=== PATIENT | female | born 1990 | race Caucasian/White ===

== ENCOUNTER 2020-11-21 07:38 | Outpatient (CLI) | payer OTHER, BC, SELFPAY ==
[2020-11-21 07:57] LABS: Basophils Percent Auto 0.6 % (0.2-1.2); Eosinophils Absolute Auto 0.2 K/mm3 (0-0.3); Eosinophils Percent Auto 3.3 % (0-4.4); Hematocrit 40.9 % (37.0-47.0); Hemoglobin 13.5 g/dL (12.0-15.0); Immature Granulocyte Absolute 0.01 K/mm3 (0.00-0.031); Immature Granulocyte Percent A 0.1 % (0-0.5); Lymphocytes Absolute Auto 2.95 K/mm3 (0.9-3.2); Lymphocytes Percent Auto 42.2 % (18.3-44.2); Mean Corpuscular Hemoglobin 29.8 pg (26-34); Mean Corpuscular Volume 90.3 fl (80-100); Mean Platelet Volume 9.9 fl (7.4-10.4); Monocytes Absolute Auto 0.5 K/mm3 (0.1-0.6); Monocytes Percent Auto 7.3 % (2.6-8.5); Neutrophils Absolute Auto 3.3 K/mm3 (1.3-6.7); Neutrophils Percent Auto 46.5 % (45.5-73.1); Platelet Count Result 394 k/mm3 (150-375); Red Blood Count 4.53 M/mm3 (4.2-5.4); Red Cell Distribution Width 12.9 % (11.5-14.5)
[2020-11-21 08:07] LABS: Alanine Aminotransferase 13 U/L (4-35); Albumin Level 4.1 g/dL (3.5-5.1); Alkaline Phosphatase 60 U/L (38-126); Anion Gap 5 mmol/L (8-16); Aspartate Amino Transferase 26 U/L (14-36); Bilirubin,Total 0.3 mg/dL (0.2-1.3); Blood Urea Nitrogen 11 mg/dL (7-17); Calcium 9.3 mg/dL (8.4-10.2); Carbon Dioxide 28 mmol/L (22-30); Chloride 107 mmol/L (98-107); Cholesterol 196 mg/dL (0-200); Estimated Glomerular Filt Rate 48; Glucose 95 mg/dL (65-105); HDL Direct 73 mg/dL; Potassium 4.9 mmol/L (3.4-5.0); Sodium 140 mmol/L (137-145); Triglycerides 84 mg/dL (<150)
[2020-11-21 08:19] LABS: LDL Cholesterol Direct 98 mg/dL
[2020-11-21 08:47] LABS: Valproic Acid 38.8 ug/mL (50-120)
== END 2020-11-21 07:39 | disposition home or self-care (01) ==
PROVIDERS: PCP Internal Medicine; Visit Provider Clinical Nurse Specialist
DX: E66.01 Morbid (severe) obesity due to excess calories (principal); Z13.228 Encounter for screening for other metabolic disorders; Z79.899 Other long term (current) drug therapy
CPT/HCPCS: 36415; 80053; 80061; 80164; 84450; 85025

== ENCOUNTER 2021-03-02 11:24 | Emergency (ER) | payer OTHER, BC, SELFPAY ==
--- NOTE | ~2021-03-02 | XR_ITS ---
EXAMINATION: XR chest 2V 03/02/2021 12:02 INDICATION: Cough for 4 days. Wheezing. PROCEDURE: 2 view chest COMPARISON: No prior studies for comparison. FINDINGS: The lungs are clear. The cardiomediastinal silhouette is within normal limits. There are no pleural effusions. There is no pneumothorax suspected. IMPRESSION: 1: NO ACUTE CARDIOPULMONARY DISEASE. Reviewed, dictated and finalized at location A.
[2021-03-02 11:28] VITALS: BP 135/98; PULSE 101; RESP 16; TEMP 36.8; O2SAT 100
[2021-03-02 11:33] VITALS: BP 135/98; PULSE 101; RESP 16; TEMP 36.8; O2SAT 100
--- NOTE | 2021-03-02 11:52 | ED.URI ---
HPI - URI/Sore Throat General Chief Complaint: Upper Respiratory Infection Stated Complaint: dizzy/nausea/diarrhea/congestion/cerrato Time Seen by Provider: 03/02/21 11:38 Source: patient and RN notes reviewed Mode of arrival: ambulatory Limitations: no limitations History of Present Illness HPI Narrative: Patient presents today complaining of 3-day history of of ear pain, congestion, body aches, fatigue, nausea, diarrhea, dry cough, headache. Denies fever sore throat. She has been taking TheraFlu, Mucinex, Flonase, using [id number]-[id number] eardrops and Vicks VapoRub without relief. She has not been vaccinated against COVID-19. Smokes 1 pack/day. Related Data Home Medications Medication Instructions Recorded Confirmed citalopram 10 mg tablet 10 mg PO DAILY tablet 08/06/20 03/02/21 dextroamphetamine-amphetamine 10 10 mg PO BID tablet 08/06/20 03/02/21 mg tablet lamotrigine 200 mg tablet 200 mg PO BID 08/06/20 03/02/21 Allergies Allergy/AdvReac Type Severity Reaction Status Date / Time No Known Allergies Allergy Verified 03/02/21 11:28 Review of Systems Review of Systems: Narrative: CONSTITUTIONAL: Denies fever, chills, or sweats.+ Body aches, fatigue EYES: Denies visual changes, redness, or discharge. ENT: + Congestion, ear pain. Denies sore throat CARDIOVASCULAR: Denies chest pain, palpitations, or edema. RESPIRATORY: Denies dyspnea.+ Cough GASTROINTESTINAL: Denies abdominal pain, vomiting. + Nausea, diarrhea GENITOURINARY: Denies dysuria or hematuria. SKIN: Denies rash, itching, or wounds. MUSCULOSKELETAL: Denies back pain, joint pain, or myalgia. NEUROLOGIC: Denies numbness, tingling, or weakness.+ Headache PSYCH: Denies depression or anxiety. [facility] Past Medical History Medical History Anxiety Depression Hx of migraines Kidney stones Pyelonephritis Tachycardia Surgical History Surgical History History of right nephrectomy History of ureter stent Social History Social History (Updated 03/02/21 @ 19:41 by Terra Cid, [facility], ) Smoking packs per day: 1 Smoking cigarettes per day: 20.0 Smoking status: Current every day smoker Tobacco type: cigarettes Alcohol intake: never Comments At time of signature, I have reviewed and agree with nursing past medical, surgical, social and family history unless otherwise noted. Please see nursing chart for further information. There is no relevant family history pertinent to the presenting complaint Exam Narrative: Exam Narrative: GENERAL: Well-appearing, well-nourished, and in no acute distress. HEAD: Normocephalic, atraumatic. EYES: EOMI. No redness or drainage. Conjunctivae normal. ENT: Mucous membranes pink and moist. Nares clear. No rhinorrhea. TMs normal bilaterally. Throat normal. Uvula midline. NECK: Normal AROM. Supple. No lymphadenopathy. CHEST: No respiratory distress. Inspiratory and expiratory wheeze left upper lobe, inspiratory wheeze in the right upper lobe. HEART: Regular rate and rhythm. No murmur appreciated. Normal peripheral pulses. EXTREMITIES: Normal range of motion. No edema. SKIN: Warm, dry, no rash. Capillary refill normal. Normal skin turgor. NEURO: No focal deficits. Alert and oriented x3. Gait steady. PSYCH: Normal affect. No signs of depression or anxiety. Course Vital Signs Vital signs: Vital Signs Temperature 98.2 F 03/02/21 11:28 Pulse Rate 101 H 03/02/21 11:28 Respiratory Rate 16 03/02/21 11:28 Blood Pressure 135/98 H 03/02/21 11:28 Pulse Oximetry 100 03/02/21 11:28 Temperature 98.2 F 03/02/21 11:33 Pulse Rate 101 H 03/02/21 11:33 Respiratory Rate 16 03/02/21 11:33 Blood Pressure 135/98 H 03/02/21 11:33 Pulse Oximetry 100 03/02/21 11:33 Reviewed. Pt has been instructed to follow up with her PCP regarding her elevated blood pressure today.
[2021-03-03 15:38] LABS: SARS-CoV-2 RNA PCR Negative
== END 2021-03-02 12:42 | disposition home or self-care (01) ==
PROVIDERS: Emergency Provider Nurse Practitioner; PCP Internal Medicine
DX: B34.9 Viral infection, unspecified (principal); Z20.822 Contact with and (suspected) exposure to COVID-19; F41.9 Anxiety disorder, unspecified; F32.9 Major depressive disorder, single episode, unspecified; Z90.5 Acquired absence of kidney
CPT/HCPCS: 71046; 87426; 99213; C9803; G0463; U0003; U0005

== ENCOUNTER 2021-03-03 16:42 | Emergency (ER) | payer BC, SELFPAY ==
--- NOTE | ~2021-03-03 | XR_ITS ---
EXAMINATION: XR chest 2V DATE: 03/03/2021 18:12 INDICATION: Shortness of breath and dizziness TECHNIQUE: PA and lateral views of the chest are obtained. COMPARISON: 03/02/2021 FINDINGS: The lungs are free of acute opacities. There is no pleural effusion or pneumothorax. The ca rdiomediastinal silhouette is normal. The visualized bones and soft tissues are unremarkable. IMPRESSION: 1. No acute cardiopulmonary abnormality. Reviewed, dictated and finalized at location A.
[2021-03-03 17:34] VITALS: BP 108/83; PULSE 67; RESP 25; TEMP 36.4; O2SAT 98
[2021-03-03 18:12] LABS: Basophils Percent Auto 0.1 % (0.2-1.2); Hematocrit 43.1 % (37.0-47.0); Hemoglobin 14.6 g/dL (12.0-15.0); Immature Granulocyte Absolute 0.03 K/mm3 (0.00-0.031); Immature Granulocyte Percent A 0.4 % (0-0.5); Lymphocytes Absolute Auto 1.37 K/mm3 (0.9-3.2); Lymphocytes Percent Auto 18.2 % (18.3-44.2); Mean Corpuscular HGB Conc 33.9 g/dl (32-36); Mean Corpuscular Hemoglobin 29.6 pg (26-34); Mean Corpuscular Volume 87.4 fl (80-100); Mean Platelet Volume 10.6 fl (7.4-10.4); Monocytes Absolute Auto 0.3 K/mm3 (0.1-0.6); Neutrophils Absolute Auto 5.8 K/mm3 (1.3-6.7); Neutrophils Percent Auto 77.3 % (45.5-73.1); Platelet Count Result 388 k/mm3 (150-375); Red Blood Count 4.93 M/mm3 (4.2-5.4); Red Cell Distribution Width 12.7 % (11.5-14.5); White Blood Count 7.5 K/mm3 (4.5-10.0)
[2021-03-03 18:31] LABS: Add Urine Microscopic? YES; Appearance Urine Cloudy (Clear); Bacteria Urine Trace /hpf; Bilirubin Urine Negative (Negative); Blood Urine 1+ (Negative); Color Urine Amber (Yellow); Glucose Urine UA Negative (Negative); Ketones Urine Negative (Negative); Leukocyte Esterase Ur 1+ LEU/UL (Negative); Mucus Urine Few /lpf; Nitrate Urine Negative (Negative); Protein Urine 1+ mg/dL (Negative); RBC Urine 0-2 /hpf (0-2); Specific Grav Ur 1.027 (1.001-1.035); Squamous Epithelial Cell Urine Many /hpf (Few); Urobilinogen Urine Negative mg/dL (<2.0); WBC Urine 0-3 /hpf
[2021-03-03 18:55] LABS: Alanine Aminotransferase 24 U/L (4-35); Albumin Level 4.1 g/dL (3.5-5.1); Alkaline Phosphatase 64 U/L (38-126); Anion Gap 11 mmol/L (8-16); Aspartate Amino Transferase 36 U/L (14-36); Bilirubin,Total 0.3 mg/dL (0.2-1.3); Blood Urea Nitrogen 11 mg/dL (7-17); Calcium 10.6 mg/dL (8.4-10.2); Carbon Dioxide 21 mmol/L (22-30); Chloride 107 mmol/L (98-107); Estimated CRCL calculation 75 ml/min; Estimated Glomerular Filt Rate 58; Glucose 119 mg/dL (65-110); Lipase 59 U/L (23-300); Potassium 4.5 mmol/L (3.4-5.0); Sodium 139 mmol/L (137-145)
[2021-03-03 19:23] VITALS: BP 136/78; PULSE 70; RESP 20; O2SAT 100
--- NOTE | 2021-03-03 20:11 | PC.NURSE ---
Called laboratory to add on D-Dimer lab test.
[2021-03-03 20:30] LABS: D Dimer 0.47 ug/mL (<0.48)
--- NOTE | 2021-03-03 20:32 | ED.URI ---
HPI - URI/Sore Throat General Chief Complaint: Upper Respiratory Infection Stated Complaint: SOB COVID TEST PENDING Time Seen by Provider: 03/03/21 19:36 Source: patient Mode of arrival: ambulatory Limitations: no limitations History of Present Illness HPI Narrative: Patient is a 30 year old female who presents with upper respiratory symptoms x 4 days. She reports cough, sob, wheezing, fatigue, nausea and vomiting. She reports that she was in [place] over the weekend and that she is not vaccinated for Covid. Patient reports being seen at Urgent Care yesterday and Covid testing performed. Patient reports negative rapid Covid. PCR Covid testing sent as well which confirmed negative results today as well. Patient was sent from with steroids and inhaler. She reports using with little relief. Related Data Home Medications Medication Instructions Recorded Confirmed citalopram 10 mg tablet 10 mg PO DAILY tablet 08/06/20 03/02/21 dextroamphetamine-amphetamine 10 10 mg PO BID tablet 08/06/20 03/02/21 mg tablet lamotrigine 200 mg tablet 200 mg PO BID 08/06/20 03/02/21 Allergies Allergy/AdvReac Type Severity Reaction Status Date / Time No Known Allergies Allergy Verified 03/02/21 11:28 Review of Systems Review of Systems: Narrative: CONSTITUTIONAL: Denies fever, chills, or sweats. EYES: Denies visual changes, redness, or discharge. ENT: Denies rhinorrhea, congestion, sore throat, or otalgia. CARDIOVASCULAR: Denies chest pain, palpitations, or edema. RESPIRATORY: Denies cough or dyspnea. GASTROINTESTINAL: Denies abdominal pain, reports nausea and diarrhea. GENITOURINARY: Denies dysuria or hematuria. SKIN: Denies rash or itching. MUSCULOSKELETAL: Denies back pain, joint pain, or myalgia. NEUROLOGIC: Denies headache, numbness, dizziness, or weakness. PSYCHIATRIC: Denies anxiety or depression. [facility] Past Medical History Medical History Anxiety Depression Hx of migraines Kidney stones Pyelonephritis Tachycardia Surgical History Surgical History History of right nephrectomy History of ureter stent Social History Social History Smoking packs per day: 1 Smoking cigarettes per day: 20.0 Smoking status: Current every day smoker Tobacco type: cigarettes Alcohol intake: never Gender identity (if verbalized by the patient): Female Comments At the time of signature, I have reviewed and agree with nursing past medical, surgical, social, and family history unless otherwise noted. Please see nursing chart for further information. There is no relevant family history pertinent to the presenting complaint. Exam Narrative: Exam Narrative: GENERAL: Well-appearing, well-nourished, and in no acute distress. HEAD: Normocephalic, atraumatic. EYES: EOMI. No redness or drainage. Conjunctiva are normal. ENT: Mucous membranes pink and moist. CHEST: No respiratory distress. HEART: Regular rate and rhythm. EXTREMITIES: Normal range of motion. No edema. SKIN: Warm, dry, no rash. NEURO: No focal deficits. Alert and oriented x3. Gait steady. PSYCH: Normal affect. No signs of depression or anxiety. Course Vital Signs Vital signs: Vital Signs Temperature 36.4 C 03/03/21 17:34 Pulse Rate 67 03/03/21 17:34 Respiratory Rate 25 H 03/03/21 17:34 Blood Pressure 108/83 03/03/21 17:34 Pulse Oximetry 98 03/03/21 17:34 Temperature 36.4 C 03/03/21 17:34 Pulse Rate 70 03/03/21 19:23 Respiratory Rate 20 03/03/21 19:23 Blood Pressure 136/78 03/03/21 19:23 Pulse Oximetry 100 03/03/21 19:23 Reviewed-patient is informed that they may have pre-hypertension or hypertension based on a blood pressure reading. I recommend the patient call the primary care provider listed on their discharge instructions or a physician of their choice thi
[2021-03-03 21:11] VITALS: BP 129/87; PULSE 69; RESP 18; O2SAT 98
== END 2021-03-03 21:11 | disposition home or self-care (01) ==
PROVIDERS: Emergency Medicine; Emergency Provider Nurse Practitioner; PCP Internal Medicine
DX: J06.9 Acute upper respiratory infection, unspecified (principal); F41.9 Anxiety disorder, unspecified; F32.9 Major depressive disorder, single episode, unspecified; Z87.442 Personal history of urinary calculi; Z90.5 Acquired absence of kidney; F17.210 Nicotine dependence, cigarettes, uncomplicated; R03.0 Elevated blood-pressure reading, without diagnosis of hypertension
CPT/HCPCS: 36415; 71046; 80053; 81001; 83690; 85025; 85380; 99283

== ENCOUNTER 2021-08-10 14:47 | Emergency (ER) | payer OTHER, BC, SELFPAY ==
--- NOTE | 2021-08-10 14:50 | ED.SKABFB ---
HPI - Skin/Abscess/Foreign Bdy General Chief complaint: Skin/Abscess/Foreign Body Stated complaint: Hives Time Seen by Provider: 08/10/21 14:50 Source: patient and RN notes reviewed History of Present Illness HPI narrative: Patient is a 30-year-old female who presents the urgent care with complaints of hives to the face. Patient denies of any recent new lotions, detergents or creams. States that it started just this morning approximately 2 hours ago and she has not taken anything [id number] for her symptoms. No other acute complaints. No acute distress noted. Patient read the plan of care. Some parts of this dictation were generated by voice recognition software and may contain typographical and/or grammatical inaccuracies. Related Data Home Medications Medication Instructions Recorded Confirmed citalopram 10 mg tablet 10 mg PO DAILY tablet 08/06/20 03/02/21 dextroamphetamine-amphetamine 10 10 mg PO BID tablet 08/06/20 03/02/21 mg tablet lamotrigine 200 mg tablet 200 mg PO BID 08/06/20 03/02/21 Allergies Allergy/AdvReac Type Severity Reaction Status Date / Time No Known Allergies Allergy Verified 03/02/21 11:28 Review of Systems Review of Systems: CONSTITUTIONAL: Denies fever, chills, or sweats. EYES: Denies visual changes, redness, or discharge. ENT: Denies rhinorrhea, congestion, sore throat, or otalgia. CARDIOVASCULAR: Denies chest pain, palpitations, or edema. RESPIRATORY: Denies cough or dyspnea. GASTROINTESTINAL: Denies abdominal pain, nausea, vomiting, or diarrhea. GENITOURINARY: Denies dysuria or hematuria. SKIN: Reports of a rash/hives to the face MUSCULOSKELETAL: Denies back pain, joint pain, or myalgia. NEUROLOGIC: Denies headache, numbness, or weakness. All other systems reviewed are negative, except as documented in HPI. [facility] Past Medical History Medical History Anxiety Depression Hx of migraines Kidney stones Pyelonephritis Tachycardia Surgical History Surgical History History of right nephrectomy History of ureter stent Social History Social History (Reviewed 03/10/21 @ 13:54 by Shadia Moise [facility]) Smoking packs per day: 1 Smoking cigarettes per day: 20.0 Smoking status: Current every day smoker Tobacco type: cigarettes Alcohol intake: never Gender identity (if verbalized by the patient): Female Comments At the time of my signature, I reviewed and agree with the nursing past medical, surgical, social, and family history. There is no relevant family history pertinent to the patient complaint. Exam Narrative: GENERAL: This is a well-nourished, well-developed patient, in no apparent distress. HEAD: normocephalic, atraumatic. EYES: PERRL. Sclera clear/white. Vision is grossly intact. EARS: External ears normal NOSE: External nose normal with no obvious nasal discharge, nares without redness, no rhinorrhea. THROAT: Mucous membranes moist NECK: Neck supple CARDIOVASCULAR: Regular rate and rhythm without murmurs, gallops, or rubs. RESPIRATORY: Clear to auscultation. Breath sounds equal bilaterally. No wheezes, rales, or rhonchi. SKIN: Erythemic nonraised dermatitis noted to bilateral cheeks. Warm, intact with no suspicious lesions or rash, good texture and turgor. NEURO: awake, alert, and oriented to person, place and time. There were no obvious focal neurologic abnormalities. EXTREMITIES: No clubbing, cyanosis, or edema. Course Course Level of Care: Express Care Visit Vital Signs Vital signs: Vital Signs Temperature 97.8 F 08/10/21 14:53 Pulse Rate 118 H 08/10/21 14:53 Respiratory Rate 16 08/10/21 14:53 Blood Pressure 118/84 08/10/21 14:53 Pulse Oximetry 100 08/10/21 14:53 Temperature 97.8 F 08/10/21 14:53 Pulse Rate 118 H 08/10/21 14:53 Respiratory Rate 16 08/10/21 14:53 Blood Pressure 118/84 08/10/21 14:53
[2021-08-10 14:53] VITALS: BP 118/84; PULSE 118; RESP 16; TEMP 36.6; O2SAT 100
== END 2021-08-10 15:17 | disposition home or self-care (01) ==
PROVIDERS: Emergency Provider Nurse Practitioner Family; PCP Internal Medicine
DX: L30.9 Dermatitis, unspecified (principal); F17.210 Nicotine dependence, cigarettes, uncomplicated; F41.9 Anxiety disorder, unspecified; F32.A Depression, unspecified
CPT/HCPCS: 99213; G0463

== ENCOUNTER 2021-09-18 10:35 | Emergency (ER) | payer OTHER, BC, SELFPAY ==
--- NOTE | ~2021-09-18 | XR_ITS ---
EXAMINATION: XR hand RT min 3V EXAM DATE: 09/18/2021 10:52 INDICATION: fell down stairs last night and injured rt. thumb. TECHNIQUE: Right hand frontal, lateral and oblique projections obtained and reviewed. There is no pr ior study for comparison. FINDINGS: Right metacarpal bones are unremarkable. There are no acute fractures or dislocations iden tified. There is no subcutaneous gas. The soft tissue is unremarkable. There are no radiopaque fo reign bodies. IMPRESSION: No acute osseous findings. Reviewed, dictated and finalized at location B. CE CL[employer]OUTINE IMPRESSION: No acute osseous findings.
[2021-09-18 10:46] VITALS: BP 121/77; PULSE 103; RESP 16; TEMP 36.3; O2SAT 100
--- NOTE | 2021-09-18 11:16 | ED.UPPEXIN ---
HPI - Extremity Injury (Upper) General Chief Complaint: Extremity Injury, Upper Stated Complaint: R thumb injury Time Seen by Provider: 09/18/21 11:16 Source: patient, RN notes reviewed and old records reviewed History of Present Illness HPI narrative: 30-year-old female who presents to [facility] with complaints of injury to her right thumb which occurred last night when she fell going up stairs. Patient reports that she put her hand out to break her fall jammed her right thumb into the step. Patient reports tenderness to the right thumb along the upper thumb into wrist region, full ROM noted.Patient reports that pain is achy especially with movement rates her pain 10/15, has been using Tylenol and ice for her discomfort. MD complaint: injury to: finger (Right thumb) Related Data Home Medications Medication Instructions Recorded Confirmed citalopram 10 mg tablet 10 mg PO DAILY tablet 08/06/20 09/18/21 dextroamphetamine-amphetamine 10 10 mg PO BID tablet 08/06/20 09/18/21 mg tablet lamotrigine 200 mg tablet 200 mg PO BID 08/06/20 09/18/21 drospirenone-ethinyl estradiol 1 tablet PO DAILY 09/18/21 09/18/21 [Anna (28)] Allergies Allergy/AdvReac Type Severity Reaction Status Date / Time No Known Allergies Allergy Verified 09/18/21 10:51 Review of Systems Review of Systems: CONSTITUTIONAL: Denies fever, chills, or sweats. EYES: Denies visual changes, redness, or discharge. ENT: Denies rhinorrhea, congestion, sore throat, or otalgia. CARDIOVASCULAR: Denies chest pain, palpitations, or edema. RESPIRATORY: Denies cough or dyspnea. GASTROINTESTINAL: Denies abdominal pain, nausea, vomiting, or diarrhea. GENITOURINARY: Denies dysuria or hematuria. SKIN: Denies rash or itching. MUSCULOSKELETAL: Denies back pain, right thumb joint pain, or myalgia. NEUROLOGIC: Denies headache, numbness, or weakness. PSYCHIATRIC: Positive history of anxiety or depression. All systems reviewed & are unremarkable except as noted in HPI and below PMFSH Past Medical History Medical History (Updated 09/18/21 @ 13:52 by Angeles Hartmann NP) ADHD (attention deficit hyperactivity disorder) Anxiety Depression Hx of migraines Kidney stones Pyelonephritis Tachycardia Surgical History Surgical History History of right nephrectomy History of ureter stent Social History Social History Smoking packs per day: 1 Smoking cigarettes per day: 20.0 Smoking status: Current every day smoker Tobacco type: cigarettes Alcohol intake: never Gender identity (if verbalized by the patient): Female Comments At time of signature, agree with nursing past medical, surgical, social and family history. There is no relevant family history pertinent to the presenting complaint Exam Narrative: GENERAL: Well-appearing, well-nourished, and in no acute distress. HEAD: Normocephalic, atraumatic. EYES: PERRLA and EOMI. ENT: Nares clear, no rhinorrhea or epistaxis. Mucous membranes moist. TM's normal with good light reflex, throat pink with no lesions or exudates no tonsil enlargement NECK: Supple. no lymphadenopathy CHEST: Clear to auscultation. No respiratory distress,SAO2 100% on room air. HEART: Regular rate and rhythm. No murmur heard. Normal peripheral pulses. ABDOMEN: Soft, nontender, nondistended, normal active bowel sounds. EXTREMITIES: Normal range of motion. No edema.Minimal edema of right thumb noted, no bruising or any tingling or numbness of right thumb. Painful mobility noted of right thumb but intact,strong right radial pulse, brisk capillary refill to right thumb nail bed. SKIN: Warm, dry, no rash. NEURO: No focal deficits. Alert and oriented x3. Course Course Level of Care: Express Care Visit Vital Signs Vital signs: Vital Signs Temperature 36.3 C L 09/18/21 10:46 Pulse Rate 103 H 09/18/21 10:46 Respiratory Rate 16
== END 2021-09-18 11:32 | disposition home or self-care (01) ==
PROVIDERS: Emergency Provider Registered Nurse; PCP Internal Medicine
DX: S63.641A Sprain of metacarpophalangeal joint of right thumb, initial encounter (principal); W10.9XXA Fall (on) (from) unspecified stairs and steps, initial encounter; F17.210 Nicotine dependence, cigarettes, uncomplicated; F90.9 Attention-deficit hyperactivity disorder, unspecified type; F41.9 Anxiety disorder, unspecified; F32.A Depression, unspecified
CPT/HCPCS: 73130; 99213; G0463

== ENCOUNTER 2021-11-23 15:51 | Emergency (ER) | payer OTHER, BC, SELFPAY ==
--- NOTE | ~2021-11-23 | XR_ITS ---
EXAMINATION: XR foot RT min 3V DATE: 11/23/2021 16:44 INDICATION: Right foot pain. Injury. TECHNIQUE: 4 views of right foot were obtained. COMPARISON: None. FINDINGS: Bone alignment is normal. No fracture. There is mild osteoarthritis of first tarsometatarsa l joint. IMPRESSION: 1. No fracture. Reviewed, dictated and finalized at location B. IMPRESSION: 1. No fracture.
[2021-11-23 15:58] VITALS: BP 128/105; PULSE 114; RESP 17; TEMP 35.9; O2SAT 100
--- NOTE | 2021-11-23 16:27 | ED.LOWEXIN ---
HPI - Extremity Injury (Lower) General Chief Complaint: Extremity Injury, Lower Stated Complaint: INJURED BOTH ANKLES/L KNEE Time Seen by Provider: 11/23/21 16:28 Source: patient, RN notes reviewed and old records reviewed Mode of arrival: ambulatory Limitations: no limitations History of Present Illness HPI Narrative: 31 year old female who presents to [facility] with complaints of falling down back steps at her house yesterday with injury to her right foot, twisting of both ankles, abrasions to bilateral knees. Patient states that she has pain to the dorsal lateral aspect of anterior foot with swelling and bruising noted. Patient states no tingling or numbness to her right foot, foot warm to touch and mobile.Patient denies any acute pain or swelling to her ankles at this time, no acute swelling noted with full mobility noted. Related Data Home Medications Medication Instructions Recorded Confirmed citalopram 10 mg tablet 10 mg PO DAILY tablet 08/06/20 09/18/21 dextroamphetamine-amphetamine 10 10 mg PO BID tablet 08/06/20 09/18/21 mg tablet lamotrigine 200 mg tablet 200 mg PO BID 08/06/20 09/18/21 drospirenone-ethinyl estradiol 1 tablet PO DAILY 09/18/21 09/18/21 [Anna (28)] Allergies Allergy/AdvReac Type Severity Reaction Status Date / Time No Known Allergies Allergy Verified 09/18/21 10:51 Review of Systems Review of Systems: CONSTITUTIONAL: Denies fever, chills, or sweats. EYES: Denies visual changes, redness, or discharge. ENT: Denies rhinorrhea, congestion, sore throat, or otalgia. CARDIOVASCULAR: Denies chest pain, palpitations, or edema. RESPIRATORY: Denies cough or dyspnea. GASTROINTESTINAL: Denies abdominal pain, nausea, vomiting, or diarrhea. GENITOURINARY: Denies dysuria or hematuria. SKIN: Denies rash or itching.abrasions bilateral dorsal knees MUSCULOSKELETAL: Denies back pain,Positive for pain right anterior dorsal foot laterally, minimal pain to ankles and to bilateral knees., or myalgia. NEUROLOGIC: Denies headache, numbness, or weakness. PSYCHIATRIC:Positive history of anxiety or depression. All systems reviewed & are unremarkable except as noted in HPI and below PMFSH Past Medical History Medical History ADHD (attention deficit hyperactivity disorder) Anxiety Depression Hx of migraines Kidney stones Pyelonephritis Tachycardia Surgical History Surgical History History of right nephrectomy History of ureter stent Social History Social History Smoking packs per day: 1 Smoking cigarettes per day: 20.0 Smoking status: Current every day smoker Tobacco type: cigarettes Alcohol intake: never Gender identity (if verbalized by the patient): Female Comments At time of signature, agree with nursing past medical, surgical, social and family history. There is no relevant family history pertinent to the presenting complaint Exam Narrative: GENERAL: Well-appearing, well-nourished, and in no acute distress. HEAD: Normocephalic, atraumatic. EYES: PERRLA and EOMI. ENT: Nares clear, no rhinorrhea or epistaxis. Mucous membranes moist.TM's normal with good light reflex. throat pink with no exudates lesions or swollen tonsils NECK: Supple.no lymphadenopathy CHEST: Clear to auscultation. No respiratory distress.SAO2 100% on room air HEART: Regular rate and rhythm. No murmur heard. Normal peripheral pulses. ABDOMEN: Soft, nontender, nondistended, normal active bowel sounds. EXTREMITIES: Normal range of motion. Noted mild edema to right anterior dorsal lateral foot with some bruising noted, no acute pain to ankles bilaterally with full mobility noted, Circulation and sensation intact to lower extremities SKIN: Warm, dry, no rash.Abrasions to bilateral anterior knees with no active bleeding noted. NEURO: No focal deficits. Alert and
--- NOTE | 2021-11-23 17:04 | ED.LOWEXIN ---
HPI - Extremity Injury (Lower) General Chief Complaint: Extremity Injury, Lower Stated Complaint: INJURED BOTH ANKLES/L KNEE Time Seen by Provider: 11/23/21 16:28 Source: patient, RN notes reviewed and old records reviewed Mode of arrival: ambulatory Limitations: no limitations Related Data Home Medications Medication Instructions Recorded Confirmed citalopram 10 mg tablet 10 mg PO DAILY tablet 08/06/20 09/18/21 dextroamphetamine-amphetamine 10 10 mg PO BID tablet 08/06/20 09/18/21 mg tablet lamotrigine 200 mg tablet 200 mg PO BID 08/06/20 09/18/21 drospirenone-ethinyl estradiol 1 tablet PO DAILY 09/18/21 09/18/21 [Anna (28)] Allergies Allergy/AdvReac Type Severity Reaction Status Date / Time No Known Allergies Allergy Verified 09/18/21 10:51 PMF Past Medical History Medical History ADHD (attention deficit hyperactivity disorder) Anxiety Depression Hx of migraines Kidney stones Pyelonephritis Tachycardia Surgical History Surgical History History of right nephrectomy History of ureter stent Social History Social History Smoking packs per day: 1 Smoking cigarettes per day: 20.0 Smoking status: Current every day smoker Tobacco type: cigarettes Alcohol intake: never Gender identity (if verbalized by the patient): Female Course Vital Signs Vital signs: Vital Signs Temperature 35.9 C L 11/23/21 15:58 Pulse Rate 114 H 11/23/21 15:58 Respiratory Rate 17 11/23/21 15:58 Blood Pressure 128/105 H 11/23/21 15:58 Pulse Oximetry 100 11/23/21 15:58 Temperature 35.9 C L 11/23/21 15:58 Pulse Rate 114 H 11/23/21 15:58 Respiratory Rate 17 11/23/21 15:58 Blood Pressure 128/105 H 11/23/21 15:58 Pulse Oximetry 100 11/23/21 15:58 Discharge Plan Discharge Clinical Impression: Ankle sprain and strain Contusion of left knee Qualifiers: Encounter type: initial encounter Qualified Code(s): S80.02XA - Contusion of left knee, initial encounter Contusion of right knee Qualifiers: Encounter type: initial encounter Qualified Code(s): S80.01XA - Contusion of right knee, initial encounter Patient Disposition: Home, Self-Care Condition: Stable Instructions: Antibiotic Form, Contusion in Adults (ED), Foot Sprain (ED) Additional Instructions: Elastic wrap or orthopedic splint as directed for comfort for the next 5-7 days Tylenol for lesser pain Ibuprofen regularly for the next 2-3 days for the inflammation Follow-up with orthopedic surgeon if no improvement Follow-up with PCP if further problems or concerns Ice to the area 20-30 minutes 4-6 times a day Elevate above heart If your symptoms persist, change or worsen significantly before you can contact your personal physician then please, without delay, go to the emergency department for further evaluation. Follow-up with PCP in 7-10 days or sooner if needed Follow up with PCP soon in regards to your blood pressure which is elevated above threshold for referral. Blood pressure above 120/80 may indicate pre-hypertension. Prescriptions: No Action drospirenone-ethinyl estradiol [Anna (28)] 3-0.03 mg tablet 1 tablet PO DAILY RF: 0 lamotrigine 200 mg tablet 200 mg PO BID RF: 0 dextroamphetamine-amphetamine 10 mg tablet 10 mg PO BID RF: 0 citalopram 10 mg tablet 10 mg PO DAILY RF: 0 Follow-up/Referrals: Leonel Oliver DO [Primary Care Provider] - Time of Disposition: 17:10
== END 2021-11-23 17:15 | disposition home or self-care (01) ==
PROVIDERS: Emergency Provider Registered Nurse; PCP Internal Medicine
DX: S93.601A Unspecified sprain of right foot, initial encounter (principal); S80.02XA Contusion of left knee, initial encounter; S80.01XA Contusion of right knee, initial encounter; W10.9XXA Fall (on) (from) unspecified stairs and steps, initial encounter; F17.210 Nicotine dependence, cigarettes, uncomplicated; F90.9 Attention-deficit hyperactivity disorder, unspecified type; F41.9 Anxiety disorder, unspecified; F32.A Depression, unspecified; Z90.5 Acquired absence of kidney; Z96.0 Presence of urogenital implants
CPT/HCPCS: 73630; 99213; G0463

== ENCOUNTER → 2021-12-14 13:28 | Outpatient (CLI) | payer OTHER, BC, SELFPAY ==
--- NOTE | ~2021-12-14 | US_ITS ---
EXAMINATION: US abdomen limited DATE: 12/14/2021 13:51 INDICATION: Epigastric and right upper quadrant pain TECHNIQUE: Multiple grayscale and Doppler ultrasound images of the abdomen were obtained. COMPARISON: None available FINDINGS: Bowel gas obscures visualization of the pancreas. The liver is normal with normal echogenic ity and echotexture. No surface nodularity. Normal hepatopetal flow in the main portal vein. The gall bladder is normal with no abnormal wall thickening, pericholecystic fluid or stones. The normal commo n bile duct measures 3 mm. There was no sonographic Mcclellan sign. Changes of right nephrectomy are not ed. IMPRESSION: 1. Normal sonographic study of the gallbladder. Reviewed, dictated and finalized at location A.
== END ==
PROVIDERS: PCP Family Medicine; Visit Provider Nurse Practitioner
DX: R10.13 Epigastric pain (principal); R10.11 Right upper quadrant pain
CPT/HCPCS: 76705

== ENCOUNTER 2021-12-25 08:13 | Outpatient (CLI) | payer OTHER, BC, SELFPAY ==
--- NOTE | ~2021-12-25 | NM_ITS ---
EXAMINATION: NM hepatobiliary wo pharm DATE: 12/25/2021 10:49 INDICATION: Right upper quadrant abdominal pain COMPARISON: Ultrasound dated 12/14/2021 TECHNIQUE: 4.83 mCi Tc-99m mebrofenin (Choletec) was administered intravenously. Scintigraphic image s of the abdomen were obtained for one hour. At the 1 hour time point, the patient drank 8 oz Ensure, and imaging was continued for 60 minutes. Gallbladder ejection fraction was calculated by the techno logist. FINDINGS: There is normal clearance of radiotracer from the blood pool. There is homogeneous tracer u ptake by the liver. Activity progresses to the bowel and gallbladder. The gallbladder ejection fract ion (GBEF) is 55%. Note that with this technique, normal GBEF >= 33%. IMPRESSION: 1. Normal hepatobiliary scan Reviewed, dictated and finalized at location A.
== END 2021-12-25 08:14 | disposition home or self-care (01) ==
LOC: ANHIMG 08:13
PROVIDERS: PCP Internal Medicine; Visit Provider Internal Medicine
DX: R10.11 Right upper quadrant pain (principal)
CPT/HCPCS: 78226; A9537

== ENCOUNTER 2022-02-03 15:22 | Emergency (ER) | payer OTHER, BC, SELFPAY ==
--- NOTE | ~2022-02-03 | CT_ITS ---
EXAMINATION: CT abdomen pelvis w con DATE: 02/03/2022 22:06 INDICATION: abdominal pain TECHNIQUE: Computed tomography (CT) of the abdomen and pelvis was performed with 100 mL Omnipaque-350 intravenous contrast. Automated exposure control and iterative reconstruction technique were employe d. The dose-length product was 1425.17 mGy-cm. COMPARISON: 07/08/2019. FINDINGS: Lower thorax: Unremarkable Liver: Normal. Biliary/Gallbladder: Gallbladder is normal. No bile duct dilation. Pancreas: No mass or duct dilation. Spleen: Normal. Adrenals:No mass. Kidneys: Right nephrectomy. No left renal mass, stone, or hydronephrosis. GI tract: No small or large bowel dilation. Normal appendix. Mesentery/Peritoneum: No ascites, mass, or free air. Retroperitoneum: No mass. Pelvis: Pelvic organs are within normal limits. Soft Tissues: Soft tissues and body wall unremarkable. Bones: No acute osseous finding. IMPRESSION: No acute abdominopelvic process. Reviewed, dictated and finalized at location K.
[2022-02-03 15:25] VITALS: BP 143/71; PULSE 77; RESP 18; TEMP 36.2; O2SAT 99
[2022-02-03 15:50] LABS: Basophils Percent Auto 0.4 % (0.2-1.2); Eosinophils Absolute Auto 0.3 K/mm3 (0-0.3); Eosinophils Percent Auto 2.6 % (0-4.4); Hematocrit 38.6 % (37.0-47.0); Hemoglobin 13.3 g/dL (12.0-15.0); Immature Granulocyte Absolute 0.03 K/mm3 (0.00-0.031); Immature Granulocyte Percent A 0.3 % (0-0.5); Lymphocytes Absolute Auto 3.68 K/mm3 (0.9-3.2); Lymphocytes Percent Auto 38.4 % (18.3-44.2); Mean Corpuscular HGB Conc 34.5 g/dl (32-36); Mean Corpuscular Volume 87.1 fl (80-100); Mean Platelet Volume 10.2 fl (7.4-10.4); Monocytes Absolute Auto 0.5 K/mm3 (0.1-0.6); Monocytes Percent Auto 4.9 % (2.6-8.5); Neutrophils Absolute Auto 5.1 K/mm3 (1.3-6.7); Neutrophils Percent Auto 53.4 % (45.5-73.1); Platelet Count Result 400 k/mm3 (150-375); Red Blood Count 4.43 M/mm3 (4.2-5.4); Red Cell Distribution Width 13.8 % (11.5-14.5); White Blood Count 9.6 K/mm3 (4.5-10.0)
[2022-02-03 16:01] LABS: Alanine Aminotransferase 14 U/L (6-35); Albumin Level 4.1 g/dL (3.5-5.1); Alkaline Phosphatase 62 U/L (38-126); Anion Gap 5 mmol/L (8-16); Aspartate Amino Transferase 20 U/L (14-36); Bilirubin,Total 0.2 mg/dL (0.2-1.3); Blood Urea Nitrogen 11 mg/dL (7-17); Calcium 9.2 mg/dL (8.4-10.2); Carbon Dioxide 23 mmol/L (22-30); Chloride 107 mmol/L (98-107); Estimated CRCL calculation 65 ml/min; Estimated Glomerular Filt Rate 52; Glucose 87 mg/dL (65-110); Lipase 59 U/L (23-300); Potassium 4.4 mmol/L (3.4-5.0); Sodium 135 mmol/L (137-145)
--- NOTE | 2022-02-03 20:59 | ED.ABDPAIN ---
HPI - Abdominal Pain General Chief Complaint: Abdominal Pain Stated Complaint: abd pain Time Seen by Provider: 02/03/22 20:43 History of Present Illness HPI narrative: 31-year-old female presenting to the emergency department for evaluation of worsening nausea vomiting and abdominal pain. Patient states she has had nausea vomiting abdominal pain for possible last 2 months. Patient has had close follow-up with her primary care physician. Patient does take Zofran and Reglan sulcal fate Benadryl and has also tried Flagyl. Patient does have follow-up scheduled GI, Dr. Pimentel, in March and is scheduled for an endoscopy. Patient also does state that she uses THC nightly. Related Data Home Medications Medication Instructions Recorded Confirmed dextroamphetamine-amphetamine 10 10 mg PO BID 08/06/20 01/19/22 mg tablet lamotrigine 200 mg tablet 200 mg PO BID 08/06/20 01/19/22 drospirenone 3 mg-ethinyl 1 tablet PO DAILY 09/18/21 01/19/22 estradiol 0.03 mg tablet (Anna (28)) escitalopram oxalate 10 mg tablet 10 mg PO DAILY 01/19/22 01/19/22 (Lexapro) Allergies Allergy/AdvReac Type Severity Reaction Status Date / Time No Known Allergies Allergy Verified 01/19/22 15:24 Review of Systems Review of Systems: CONSTITUTIONAL: Denies fever, chills, or sweats. EYES: Denies visual changes, redness, or discharge. ENT: Denies rhinorrhea, congestion, sore throat, or otalgia. CARDIOVASCULAR: Denies chest pain, palpitations, or edema. RESPIRATORY: Denies cough or dyspnea. GASTROINTESTINAL: See HPI GENITOURINARY: Denies dysuria or hematuria. SKIN: Denies rash or itching. MUSCULOSKELETAL: Denies back pain, joint pain, or myalgia. NEUROLOGIC: Denies headache, numbness, or weakness. PENDING SALE TO [facility] Past Medical History Medical History (Updated 02/04/22 @ 00:00 by Background Daemon) ADHD (attention deficit hyperactivity disorder) Anxiety Depression Diarrhea Encounter for IUD insertion 02/05/10 Mirena insertion 03/29/11 Paragard insertion Encounter for IUD removal 05/06/10 Mirena removal 09/09/14 Paragard removal Hx of migraines Kidney stones Marijuana use Pyelonephritis Tachycardia Tobacco use Vomiting Surgical History Surgical History History of right nephrectomy (~01/2017) History of ureter stent Family History Family History Other Breast cancer maternal aunt Social History Social History Smoking packs per day: 1 Smoking cigarettes per day: 20.0 Smoking status: Never smoker Tobacco type: cigarettes Alcohol intake: never Substance use: never Substance use type: does not use Additional living arrangements comments: 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 HEAD: normocephalic, atraumatic. EYES: PERRLA/EOMI, conjunctivae clear. NOSE: Normal no drainage NECK: Supple. No adenopathy, no masses. RESPIRATORY: Airway patent, respirations nonlabored. Clear to auscultation bilaterally, no rales, rhonchi, wheezing. CARDIOVASCULAR: Regular rate and rhythm without murmurs rubs or gallops. ABDOMINAL: Soft, normal bowel sounds, some right upper quadrant tenderness to palpation. MUSCULOSKELETAL: Moves all extremities. Strength/ROM intact, No edema, No calf tenderness. NEURO: Alert. Cranial nerves II through XII intact. Grossly intact SKIN: Warm, dry. Normal Color Course Course Emergency Course: Patient was informed on the plan for labs and imaging. Patient is also informed on the possibility of her underlying nausea having a component of cannabinoid hyperemesis syndrome. Patient told that the Kevin zuleta
[2022-02-03] MEDS: SODIUM CHLORIDE 0.9% IV 1,000 ML 999 ML IV CONT (21:39)
[2022-02-03] MEDS: HALOPERIDOL LACTATE 5 MG/ML VIAL IM (21:40)
[2022-02-03 21:58] LABS: Appearance Urine Slightly Cloudy (Clear); Bilirubin Urine 1+ (Negative); Color Urine Yellow (Yellow); Glucose Urine UA Negative (Negative); Ketones Urine Negative (Negative); Leukocyte Esterase Ur Negative LEU/UL (Negative); Nitrate Urine Negative (Negative); Protein Urine Trace mg/dL (Negative); Specific Grav Ur >= 1.030 (1.001-1.035); Urobilinogen Urine 0.2 mg/dL (<2.0)
[2022-02-03 22:02] LABS: Bacteria Urine Trace /hpf; Mucus Urine Heavy /lpf; Squamous Epithelial Cell Urine Many /hpf (Few); WBC Urine 0-3 /hpf
[2022-02-03 22:06] LABS: Add Urine Microscopic? YES; Blood Urine Trace-Intact (Negative)
[2022-02-03 22:49] VITALS: BP 101/57; PULSE 73; RESP 16; O2SAT 98
[2022-02-03 23:37] VITALS: BP 123/77; PULSE 77; RESP 16; O2SAT 100
== END 2022-02-03 23:39 | disposition home or self-care (01) ==
PROVIDERS: Emergency Medicine; Emergency Provider Emergency Medicine; PCP Internal Medicine
DX: R11.0 Nausea (principal); F90.9 Attention-deficit hyperactivity disorder, unspecified type; F41.9 Anxiety disorder, unspecified; F32.9 Major depressive disorder, single episode, unspecified
CPT/HCPCS: 36415; 74177; 80053; 81001; 81025; 83690; 85025; 96361; 96372; 96374; 99284; J0131; J1630; J7030; Q9967

== ENCOUNTER 2022-02-05 15:15 | Outpatient (CLI) | payer OTHER, BC, SELFPAY ==
[2022-02-05 16:12] LABS: Hemoglobin A1C 4.9 % (<5.7)
== END 2022-02-05 15:16 | disposition home or self-care (01) ==
LOC: ANHLAB 15:18
PROVIDERS: PCP Internal Medicine; Visit Provider Obstetrics & Gynecology
DX: N89.8 Other specified noninflammatory disorders of vagina (principal)
CPT/HCPCS: 36415; 83036

== ENCOUNTER 2022-03-16 13:00 | Outpatient (NON) | payer OTHER, BC, SELFPAY | END 2022-03-16 13:01 | disposition home or self-care (01) | PROVIDERS: PCP Internal Medicine; Visit Provider Internal Medicine Gastroenterology | DX: R11.2 Nausea with vomiting, unspecified (principal) | CPT/HCPCS: 88305 ==

== ENCOUNTER 2022-03-16 13:51 | Day surgery (SDC) | payer OTHER, BC, SELFPAY ==
[2022-03-02 09:29] VITALS: BMI 38.5
--- NOTE | 2022-03-16 07:21 | WPDANESEPPF ---
Anes - Initial Pre Proc Eval Procedure: Operation Date: 03/16/22 14:00 Proposed Procedures p Esophagogastroduodenoscopy - Toni De La Fuente MD Date/Time: 03/16/22 07:21 Surgeon: Toni De La Fuente MD Pre Op Diagnosis: Nausea and Vomitting Patient Data Age: 31 Gender: F Height: 1.57 m Weight: 95.4 kg Allergies Allergy/AdvReac Type Severity Reaction Status Date / Time No Known Allergies Allergy Verified 03/16/22 14:17 Home Medications Medication Instructions Recorded Confirmed Type dextroamphetamine-amphetamine 10 10 mg PO BID 08/06/20 03/02/22 History mg tablet lamotrigine 200 mg tablet 200 mg PO BID 08/06/20 03/02/22 History drospirenone 3 mg-ethinyl 1 tablet PO DAILY 09/18/21 03/02/22 History estradiol 0.03 mg tablet (Anna (28)) prochlorperazine maleate 10 mg 10 mg PO QID PRN nausea and 01/13/22 03/02/22 Rx tablet (Compazine) vomiting #60 tabs escitalopram oxalate 10 mg tablet 15 mg PO DAILY 01/19/22 03/02/22 History (Lexapro) dicyclomine 10 mg capsule 20 mg PO .every 6 hours #120 caps 02/26/22 03/02/22 Rx pantoprazole 20 mg tablet,delayed 20 mg PO BID #60 tabs 02/26/22 03/02/22 Rx release Patient hx anesthesia problems: none Family hx anesthesia problems: none Results Review: All pre-operative results and documents have been reviewed as part of the pre-operative evaluation. [facility] Past Medical History Medical History (Updated 03/16/22 @ 07:21 by Jamie Ortega DO) ADHD (attention deficit hyperactivity disorder) Anxiety Depression Diarrhea Encounter for IUD insertion 02/05/10 Mirena insertion 03/29/11 Paragard insertion Encounter for IUD removal 05/06/10 Mirena removal 09/09/14 Paragard removal Epigastric pain GERD (gastroesophageal reflux disease) Hx of migraines Irritable bowel syndrome with diarrhea Kidney stones Marijuana use Nausea and vomiting Pyelonephritis Regurgitation of food Tachycardia Tobacco use Vomiting Surgical History Surgical History History of right nephrectomy (~01/2017) History of ureter stent Family History Family History Other Breast cancer maternal aunt Social History Social History Smoking packs per day: 1 Smoking cigarettes per day: 20.0 Years smoked: 2 Smoking pack-years: 2.00 Smoking status: Current every day smoker Tobacco type: cigarettes Alcohol intake: never Substance use: never Substance use type: does not use Living arrangements: with family Additional living arrangements comments: 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 Gender identity (if verbalized by the patient): Female Sexual Orientation (if Verbalized by the Patient): Straight or Heterosexual Spiritual care concerns: No Anes - Eval Final PreProcedure Day of Procedure 03/16/22 07:21 Patient weight: obese Heart: regular rate and rhythm Lungs: clear to auscultation Airway: Mallampati scale class II Neurological: alert and oriented Last oral intake: >/= 8 hours ASA classification: II Emergent: no Anesthetic plan: proceed Anesthesia type and monitoring: general GIVS and standard monitoring Results Review: All pre-operative results and documents have been reviewed as part of the pre-operative evaluation. Informed Consent: The patient's anesthetic plan and its attendant risks and benefits were discussed with the patient/family/POA. Questions were solicited and answers provided to the satisfaction of the patient/family/POA.
[2022-03-16 14:10] VITALS: BP 115/74; PULSE 88; RESP 14; TEMP 36.6; O2SAT 98
[2022-03-16] MEDS: LACTATED RINGERS 1,000 ML 150 ML IV CONT (14:33)
[2022-03-16 14:39] VITALS: BMI 37.0
--- NOTE | 2022-03-16 14:45 | WPDHPUPDATE1 ---
History and Physical Update Update Date/Time: 03/16/22 14:45 History and Physical has been reviewed, including an updated exam of the patient. There are NO changes in the patient's condition. Risks, benefits, and alternatives have been discussed and questions answered. Patient agrees to proceed with procedure.
[2022-03-16 15:05] VITALS: BP 94/63; PULSE 82; RESP 16; O2SAT 99
--- NOTE | 2022-03-16 15:12 | SUR.PHASEII ---
PT AWAKE AND ALERT. TAKING PO FLUIDS. STATES SHE IS READY TO GO HOME
[2022-03-16 15:15] VITALS: BP 114/46; PULSE 78; RESP 16; O2SAT 98
[2022-03-16 15:25] VITALS: BP 92/44; PULSE 64; RESP 16; O2SAT 99
--- NOTE | 2022-03-16 15:29 | WPDANESPN ---
Anes - Prog Note Post-Op Date/Time: 03/16/22 15:29 Cardiovascular status: normal Respiratory status: normal Airway patency: baseline Mental status: baseline Post-Op hydration status: normal Vital Signs: Last Vital Signs Temp 36.6 C 03/16/22 14:10 Pulse 64 03/16/22 15:25 Resp 16 03/16/22 15:25 BP 92/44 L 03/16/22 15:25 Pulse Ox 99 03/16/22 15:25 O2 Del Method Room Air 03/16/22 15:25 Pain Score (VAS): 0 I/O: Intake & Output 03/15/22 03/16/22 03/16/22 23:59 07:59 15:59 Intake Total 100 Balance 100 Post-procedural complaints: none Patient Feedback: Patient satisfied with anesthetic care. Other Findings: Patient vital signs back to baseline. Patient denies nausea and vomiting. Patient's pain under control. Patient OK for discharge.
== END 2022-03-16 15:31 | disposition home or self-care (01) ==
PROVIDERS: PCP Internal Medicine; Visit Provider Internal Medicine Gastroenterology
PROC: 0DJ08ZZ Inspection of Upper Intestinal Tract, Via Natural or Artificial Opening Endoscopic (ICD-10-PCS; CPT 43235; principal; 2022-03-16 14:00)
DX: R11.2 Nausea with vomiting, unspecified (principal)
CPT/HCPCS: 43239

== ENCOUNTER 2022-03-23 08:07 | Outpatient (CLI) | payer OTHER, BC, SELFPAY ==
--- NOTE | ~2022-03-23 | NM_ITS ---
EXAM: NM gastric emptying study DATE: 03/23/2022 12:45 CDT INDICATION: Nausea and vomiting TECHNIQUE: A gastric emptying study was performed using the methodology of Minerva CLAUDIO, et al. J Nucl Med 2007; 48:568-572. The patient was given a meal consisting of 2 scrambled eggs labeled with 1 mCi Tc-99m sulfur colloid, 2 slices of toast, two packages of jam, and approximately 120 mL of water. Si multaneous anterior and posterior 1-min images of the abdomen were obtained with the patient supine a t multiple time points over a total period of 4 hours. The geometric mean of anterior and posterior v iews was determined, and the percentage retention was calculated for each time point. COMPARISON: CT dated 02/03/2022. FINDINGS: Gastric retention of the radiotracer-labeled meal was 45%, 16%, and 2% at the 1-hour, 2-ho ur, and 4-hour time points, respectively. With this technique, apparent rapid gastric emptying is sug gested by <30% gastric retention at 1 hour. Delayed gastric emptying is defined by gastric retention of >90% at 1 hour, >60% retention at 2 hours, or >10% retention at 4 hours. IMPRESSION: 1. Normal gastric emptying. Reviewed, dictated and finalized at location B. IMPRESSION: 1. Normal gastric emptying.
== END 2022-03-23 08:08 | disposition home or self-care (01) ==
LOC: ANHIMG 08:08
PROVIDERS: PCP Internal Medicine; Visit Provider Nurse Practitioner
DX: F12.90 Cannabis use, unspecified, uncomplicated (principal); K58.0 Irritable bowel syndrome with diarrhea; R11.2 Nausea with vomiting, unspecified; R10.13 Epigastric pain; R11.10 Vomiting, unspecified; Z72.0 Tobacco use
CPT/HCPCS: 78264; A9541

== ENCOUNTER 2023-07-07 08:06 | Outpatient (CLI) | payer BC, SELFPAY ==
[2023-07-07 15:00] LABS: Basophils Absolute Auto 0.1 K/mm3 (0.0-0.1); Basophils Percent Auto 0.5 % (0.2-1.2); Eosinophils Absolute Auto 0.3 K/mm3 (0-0.3); Eosinophils Percent Auto 3.1 % (0-4.4); Hematocrit 42.4 % (37.0-47.0); Hemoglobin 13.1 g/dL (12.0-15.0); Immature Granulocyte Absolute 0.04 K/mm3 (0.00-0.031); Immature Granulocyte Percent A 0.4 % (0-0.5); Lymphocytes Absolute Auto 3.23 K/mm3 (0.9-3.2); Lymphocytes Percent Auto 34.5 % (18.3-44.2); Mean Corpuscular HGB Conc 30.9 g/dl (32-36); Mean Corpuscular Hemoglobin 29.8 pg (26-34); Mean Corpuscular Volume 96.4 fl (80-100); Mean Platelet Volume 10.4 fl (7.4-10.4); Monocytes Absolute Auto 0.6 K/mm3 (0.1-0.6); Monocytes Percent Auto 6.2 % (2.6-8.5); Neutrophils Absolute Auto 5.2 K/mm3 (1.3-6.7); Neutrophils Percent Auto 55.3 % (45.5-73.1); Platelet Count Result 417 k/mm3 (150-375); Red Cell Distribution Width 14.1 % (11.5-14.5); White Blood Count 9.4 K/mm3 (4.5-10.0)
[2023-07-07 15:21] LABS: Alanine Aminotransferase 19 U/L (6-35); Albumin Level 4.2 g/dL (3.5-5.1); Alkaline Phosphatase 71 U/L (38-126); Anion Gap 10 mmol/L (8-16); Aspartate Amino Transferase 47 U/L (14-36); Bilirubin,Total 0.4 mg/dL (0.2-1.3); Blood Urea Nitrogen 13 mg/dL (7-17); Calcium 9.4 mg/dL (8.4-10.2); Carbon Dioxide 24 mmol/L (22-30); Chloride 106 mmol/L (98-107); Cholesterol 179 mg/dL (0-200); Estimated Glomerular Filt Rate 58; Glucose 58 mg/dL (65-110); HDL Direct 74 mg/dL; LDL Cholesterol Direct 77 mg/dL; Potassium 4.8 mmol/L (3.4-5.0); Sodium 140 mmol/L (137-145); Triglycerides 74 mg/dL (<150)
== END 2023-07-07 08:07 | disposition home or self-care (01) ==
LOC: ANHGOSHLAB 08:08
PROVIDERS: PCP Internal Medicine; Visit Provider Nurse Practitioner
DX: Z13.228 Encounter for screening for other metabolic disorders (principal); Z13.220 Encounter for screening for lipoid disorders
CPT/HCPCS: 36415; 80053; 80061; 85025

== ENCOUNTER 2023-07-12 10:41 | Outpatient (CLI) | payer BC, SELFPAY ==
[2023-07-12 20:38] LABS: Hepatitis C Virus Antibody Negative (Negative)
[2023-07-16 09:30] LABS: Albumin 3.5 g/dL (3.8-4.8); Alpha 1 Globulin 0.5 g/dL (0.2-0.3); Alpha 2 Globulin 1.1 g/dL (0.5-0.9); Beta 1 Globulin 0.5 g/dL (0.4-0.6); Gamma Globulin 0.8 g/dL (0.8-1.7); Protein, Total 6.7 g/dL (6.1-8.1)
[2023-07-18 00:30] LABS: Creatinine, Random Urine 359 mg/dL (20-275); Total Protein/Creatinine Ratio 56 mg/g creat (24-184)
[2023-07-20 16:52] LABS: ANA Cascade Screen Negative (Negative)
== END 2023-07-12 10:42 | disposition home or self-care (01) ==
LOC: ANHGOSHLAB 10:42
PROVIDERS: PCP Internal Medicine; Visit Provider Nurse Practitioner
DX: R94.4 Abnormal results of kidney function studies (principal)
CPT/HCPCS: 36415; 82570; 84155; 84156; 84165; 84166; 86038; 86225; 86235; 86364; 86803

== ENCOUNTER 2023-07-18 08:57 | Outpatient (CLI) | payer BC, SELFPAY ==
--- NOTE | 2023-08-09 09:55 | WPDSLEEPSTUD ---
Sleep Study Date of Study: 07/18/23 Ordering Provider: Gauri Han NP Interpreting Physician: Lashell Mas MD Sleep Study Type: Polysomnogram Height: 1.57 m Weight: 108.862 kg Body Mass Index: 43.9 Neck Circumference (inches): 14 [place]: 8 Reason for Sleep Study difficulty falling asleep and staying is Sleep History Anna Stephen is a 32-year-old female who describes a lifelong history of difficulty falling asleep and staying asleep she has a difficult time waking up in the morning. She rarely awakens from sleep feeling short of breath. She occasionally awakens at night with heartburn, belching or coughing. She occasionally snores but only rarely is it loud enough that others complain about it. She occasionally has difficulty sleeping with a cold. She does not wake up gasping for breath at night. She rarely has breathing problems at night observed by others. She occasionally sweats excessively at night, rarely notices her heart pounding or beating irregularly at night. She occasionally falls asleep during the day. She never falls asleep involuntarily or while driving. She rarely has loss of muscle tone with strong emotion. She occasionally has daytime difficulties due to excessive sleepiness. She rarely feels paralyzed on waking or falling asleep. She frequently has vivid dreamlike scenes upon awakening or falling asleep. She never feels afraid to go to sleep. She occasionally has nightmares. She frequently remembers her dreams. She frequently has racing thoughts. She occasionally feels sad or depressed. She frequently has anxiety. She occasionally has muscular tension. She frequently notices parts of her body jerking. She rarely kicks at night. She occasionally has crawling and aching feelings in her legs, occasionally has leg pain at night occasionally has morning jaw pain. She frequently grinds her teeth during sleep. She occasionally is bothered by pain during the day, occasionally awakened by pain at night. She frequently wakes up feeling stiff in the morning, frequently wakes up with sore achy muscles and frequently wakes up with pain in the neck and spine. She has fatigue, memory problems and she takes antacids regularly. Normal bedtime is 10:00 p.m. falling asleep within 2-3 hours, typically waking between 2 and 3 times during the night to urinate, checked the clock and then return to bed. She is able to return to sleep within 3-5 minutes. Her normal wake time is between 5:30 a.m. and 6:00 a.m.. On weekends, bedtime is 11:00 p.m., her wake time is later, between 9:00 a.m. and 10:00 a.m.. She sleeps less at night and more during the day on weekends compared to week days. She estimates getting between 4 and 6 hours of sleep most nights. She takes naps in the afternoon or evening. A short nap lasting 10-15 minutes may be refreshing. She is usually drowsy for 2 hours or longer. She feels better in the afternoon compared to other times of day. Habits: Tobacco: 1 pack per day. Caffeine: 1 beverage per day. Alcohol: None recreational substances: None [facility] Past Medical History Medical History ADHD (attention deficit hyperactivity disorder) Anxiety Depression Diarrhea Encounter for IUD insertion 02/05/10 Mirena insertion 03/29/11 Paragard insertion Encounter for IUD removal 05/06/10 Mirena removal 09/09/14 Paragard removal Epigastric pain GERD (gastroesophageal reflux disease) Headache Hx of migraines Irritable bowel syndrome with diarrhea Kidney stones Marijuana use Nausea and vomiting Pyelonephritis Regurgitation of food Tachycardia Tobacco use Vomiting Surgical History Surgical History History of right nephrectomy (~01/2017) History of ureter stent Family History Family History Other Breast cancer matern
[2023-08-09 10:01] VITALS: BMI 43.9
== END 2023-07-19 06:40 | disposition home or self-care (01) ==
LOC: ANHCSM 09:01
PROVIDERS: PCP Internal Medicine; Visit Provider Nurse Practitioner
DX: R40.0 Somnolence (principal)
CPT/HCPCS: 95810

== ENCOUNTER 2023-07-27 10:08 | Outpatient (CLI) | payer BC, SELFPAY ==
[2023-07-27 19:43] LABS: Creatinine Urine 124.2 mg/dL
[2023-07-27 20:00] LABS: Complement C3 150 mg/dL (88-165); Total Protein Urine Random < 5 mg/dL
[2023-07-27 20:01] LABS: Ur Ttl Prot Creatinine Ratio < 0.04 mg/mg (0-0.20)
[2023-07-27 20:05] LABS: Albumin Level 4.2 g/dL (3.5-5.1); Anion Gap 8 mmol/L (8-16); Blood Urea Nitrogen 10 mg/dL (7-17); Calcium 9.5 mg/dL (8.4-10.2); Carbon Dioxide 24 mmol/L (22-30); Chloride 108 mmol/L (98-107); Estimated Glomerular Filt Rate 52; Glucose 101 mg/dL (65-110); Phosphorus 3.3 mg/dL (2.5-4.5); Potassium 4.6 mmol/L (3.4-5.0); Sodium 140 mmol/L (137-145)
[2023-07-30 21:32] LABS: ANCA Screen Negative (Negative)
[2023-08-02 20:53] LABS: Anti Glomerular Basement Memb <1.0 AI (<1.0)
== END 2023-07-27 10:09 | disposition home or self-care (01) ==
LOC: ANHGOSHLAB 10:10
PROVIDERS: Visit Provider Internal Medicine Nephrology
DX: R79.89 Other specified abnormal findings of blood chemistry (principal); Z90.5 Acquired absence of kidney
CPT/HCPCS: 36415; 80069; 82570; 83520; 84156; 86036; 86160; 86225

== ENCOUNTER 2024-09-11 10:10 | Outpatient (CLI) | payer BC, SELFPAY ==
--- OUTSIDE RECORDS SUMMARY | 2024-09-11 10:38 | XMS_ITS | Patient Health Summary ---
Author Organization [facility] Address [address] [place] [address] Care Team Providers Care Bar Back Name Role Phone Leonel Oliver DO Primary Care Provider [phone] Note from [facility],non-owned Affiliates and Associated Physician Practices is amultiple site organization consisting of ambulatory clinics and hospital sitesin [place], [place], [place] and [place]. This disclosure is being madepursuant to the Care Everywhere program and may not contain all information available regarding this patient. Last updated 18.[facility] Allergies No known active allergies Medications * Be aware that medications may not be up to date on this document. Alwaysverify current medications with the patient. * drospirenone-ethinyl estradiol (VIBHA 28) 3-0.03 MG tablet Take 1 Tab by mouth once daily * fluticasone propionate (FLONASE) 50 MCG/ACT nasal spray(Started 09/21/2016) [place] 2 Sprays into each nostril once daily Reasons: Signs and Symptoms of Nose Diseases Active Problems No known active problems Social History Tobacco Use Types Packs/Day Years Used Date Smoking Tobacco: Never Alcohol Use Standard Drinks/Week Comments Not Asked 0 (1 standard drink = 0.6 oz pur e alcohol) Sex and Gender Information Value Date Recorded Sex Assigned at Not on file Gender Identity Not on file Sexual Orientation Not on file Last Filed Vital Signs Vital Sign Reading Time Taken Comments Blood Pressure 121/78 10/12/2017 9:53 AM TRAVELING STOREKEEPER Pulse 102 10/12/2017 9:53 AM TRAVELING STOREKEEPER Temperature 37.1 ??C (98.7 ??F) 09/16/2017 9:41 AM CS T Respiratory Rate 16 02/02/2017 12:26 PM CDT Oxygen Saturation 95% 10/12/2017 9:53 AM TRAVELING STOREKEEPER Inhaled Oxygen Concentration - - Weight 108.9 kg (240 lb) 10/12/2017 9:53 AM TRAVELING STOREKEEPER Height 160 cm (5' 3 ) 10/12/2017 9:53 AM TRAVELING STOREKEEPER Body Mass Index 42.51 10/12/2017 9:53 AM TRAVELING STOREKEEPER Procedures * URINALYSIS W/MICROSCOPIC NO CULTURE(Performed 09/17/2017) * CULTURE URINE(Performed 09/17/2017) * CULTURE MYCOPLASMA HOMINIS+UREAPLASMA CULTURE(Performed 09/16/2017) * URINALYSIS AUTO - POINT OF CARE (AMB) [facility](Performed 09/16/2017) * BASIC METABOLIC PANEL (CALCIUM TOTAL)(Performed 02/22/2017) * URINALYSIS AUTO - POINT OF CARE (AMB) [facility](Performed 02/22/2017) * CBC W/O DIFFERENTIAL(Performed 02/02/2017) * BASIC METABOLIC PANEL (CALCIUM TOTAL)(Performed 02/02/2017) * BASIC METABOLIC PANEL (CALCIUM TOTAL)(Performed 02/01/2017) * CBC W/O DIFFERENTIAL(Performed 02/01/2017) * CBC W AUTO DIFFERENTIAL(Performed 01/31/2017) * CBC W AUTO DIFFERENTIAL(Performed 01/31/2017) * PATHOLOGY TISSUE(Performed 01/31/2017) * CULTURE URINE(Performed 01/31/2017) * CROSSMATCH RBC LEUKOREDUCED(Performed 01/31/2017) * TYPE + SCREEN PANEL(Performed 01/31/2017) * CBC W AUTO DIFFERENTIAL(Performed 01/31/2017) * BASIC METABOLIC PANEL (CALCIUM TOTAL)(Performed 01/31/2017) * CBC W AUTO DIFFERENTIAL(Performed 01/31/2017) * HCG URINE QUALITATIVE - POCT (IP) [facility](Performed 01/31/2017) * URINALYSIS W/MICROSCOPIC NO CULTURE(Performed 12/29/2016) * CULTURE URINE(Performed 12/29/2016) * URINALYSIS AUTO - POINT OF CARE (AMB) [facility](Performed 12/29/2016) * NM RENAL SCAN W FLOW AND FUNCTION(Performed 12/27/2016) * BASIC METABOLIC PANEL (CALCIUM TOTAL)(Performed 12/22/2016) * CBC W AUTO DIFFERENTIAL(Performed 12/22/2016) * CBC W AUTO DIFFERENTIAL(Performed 12/22/2016) * PT-INR [facility](Performed 12/21/2016) * BASIC METABOLIC PANEL (CALCIUM TOTAL)(Performed 12/21/2016) * CBC W AUTO DIFFERENTIAL(Performed 12/21/2016) * CBC W AUTO DIFFERENTIAL(Performed 12/21/2016) * CT ABDOMEN PELVIS W CONTRAST(Performed 12/20/2016) * HCG URINE QUALITATIVE - POCT (IP) [facility](Performed 12/20/2016) * CULTURE URINE(Performed 12/20/2016) * URINALYSIS REFLEX TO MICROSCOPIC NO CULTURE(Performed 12/20/2016) * CULTURE BLOOD(Performed 12/20/2016) * LACTIC ACID BLOOD(Performed 12/20/2016) * CULTURE BLOOD(Performed 12/20/2016) * COMPREHENSIVE METABOLIC PANEL(Performed 12/20/2016) * CBC W AUTO DIFFERENTIAL(Performed 12/20/2016) * CBC W AUTO DIFFERENTIAL(Performed 12/20/2016) * PURPLE TOP TUBE EXTRA(Performed 12/20/2016) * GREEN TOP TUBE EXTRA(Performed 12/20/2016) * BASIC METABOLIC PANEL (CALCIUM TOTAL)(Performed 12/03/2016) * CBC W/O DIFFERENTIAL(Performed 12/03/2016) * PTH INTACT W/O CALCIUM(Performed 12/02/2016) * BASIC METABOLIC PANEL (CALCIUM TOTAL)(Performed 12/02/2016) * CBC W/O DIFFERENTIAL(Performed 12/02/2016) * CBC W AUTO DIFFERENTIAL(Performed 12/01/2016) * BASIC METABOLIC PANEL (CALCIUM TOTAL)(Performed 12/01/2016) * CBC W AUTO DIFFERENTIAL(Performed 12/01/2016) * CULTURE ANAEROBE(Performed 12/01/2016) * CULTURE AEROBIC(Performed 12/01/2016) * FL NANCY SURGERY(Performed 12/01/2016) * STONE ANALYSIS QUANT(Performed 12/01/2016) * PATHOLOGY TISSUE(Performed 12/01/2016) * TYPE + SCREEN PANEL(Performed 12/01/2016) * IR PERC NEPHROSTOMY(Performed 12/01/2016) * HCG URINE QUALITATIVE - POCT (IP) [facility](Performed 12/01/2016) * PTT [facility](Performed 12/01/2016) * PT-INR [facility](Performed 12/01/2016) * NM RENAL SCAN W DRUG(Performed 11/23/2016) * BASIC METABOLIC PANEL (CALCIUM TOTAL)(Performed 11/16/2016) * URINALYSIS REFLEX TO MICROSCOPIC NO CULTURE(Performed 11/16/2016) * CBC W/O DIFFERENTIAL(Performed 11/16/2016) * CULTURE URINE(Performed 11/16/2016) * URINALYSIS AUTO - POINT OF CARE (AMB) [facility](Performed 11/16/2016) * FL CYSTOGRAM(Performed 11/10/2016) * HCG URINE QUALITATIVE - POCT (IP) [facility](Performed 11/10/2016) * BASIC METABOLIC PANEL (CALCIUM TOTAL)(Performed 09/29/2016) * CBC W/O DIFFERENTIAL(Performed 09/29/2016) * HEMATOCRIT(Performed 09/28/2016) * HEMOGLOBIN(Performed 09/28/2016) * CT ABDOMEN PELVIS WO CONTRAST(Performed 09/28/2016) * BASIC METABOLIC PANEL (CALCIUM TOTAL)(Performed 09/28/2016) * CBC W/O DIFFERENTIAL(Performed 09/28/2016) * FL CYSTOGRAM(Performed 09/28/2016) * HCG URINE QUALITATIVE - POCT (IP) [facility](Performed 09/28/2016) * BASIC METABOLIC PANEL (CALCIUM TOTAL)(Performed 09/17/2016) Performed for Uric acid nephrolithiasis, Preop examination * CBC W/O DIFFERENTIAL(Performed 09/17/2016) Performed for Uric acid nephrolithiasis, Preop examination * CULTURE URINE(Performed 09/17/2016) * URINALYSIS AUTO - POINT OF CARE (AMB) [facility](Performed 09/17/2016) * LAB HISTORICAL RESULTS-ONBASE(Performed 09/17/2016) * URINALYSIS AUTO - POINT OF CARE (AMB) [facility](Performed 04/15/2016) Performed for Urinary tract infection without hematuria, site unspecified Results * (ABNORMAL) URINALYSIS W/MICROSCOPIC NO CULTURE (09/17/2017 9:00 PM TRAVELING STOREKEEPER) Only the most recent of2 resultswithin the time period is included. Color UA YELLOW YELLOW [facility] ([facility]) Appearance CLEAR CLEAR [facility] ([facility]) Specific [place] UA 1.006 1.001 - 1.035 [facility] ([facility]) pH Urine 6.0 5.0 - 8.0 [facility] ([facility]) Glucose UA NEGATIVE NEGATIVE [facility] ([facility]) Bilirubin UA NEGATIVE NEGATIVE [facility] ([facility]) Ketone UA NEGATIVE NEGATIVE [facility] ([facility]) Blood UA NEGATIVE NEGATIVE [facility] ([facility]) Protein UA NEGATIVE NEGATIVE [facility] ([facility]) Nitrite UA NEGATIVE NEGATIVE [facility] ([facility]) Leukocyte Esterase TRACE(A) NEGATIVE [facility] ([facility]) WBC Urine 0-5 < OR = 5 /HPF [facility] ([facility]) RBC Urine NONE SEEN < OR = 2 /HPF [facility] ([facility]) Squamous Epithelial Cells UA 0-5 < OR = 5 /HPF [facility] ([facility]) Bacteria UA FEW(A) NONE SEEN /HPF [facility] ([facility]) Hyaline Casts UA NONE SEEN NONE SEEN /LPF [facility] ([facility]) Comment UA [facility] ([facility]) Comment: The preferred specimen for urinalysis is urine preserved using a [employer] Brand Urine Preservative Tube (yellow top, blue band) that may be obtained from your [facility] supplier. Please review results with caution. Urinalysis testing on unpreserved urine may produce alteration of chemical constituents and deterioration of formed elements. See Note See Below [facility] ([facility]) Comment: This urine was analyzed for the presence of WBC, RBC, bacteria, casts, and other formed elements. Only those elements seen were reported. Test Performed at: [email or web address] ??[id number] NIEVES VALDOVINOS MD Urine specimen (specimen) URINE SPECIMEN OBTAINED BY CLEAN CATCH PROCEDURE / Unknown 09/17/2017 9:00 PM TRAVELING STOREKEEPER 09/17/2017 3:48 AM TRAVELING STOREKEEPER Vickie Yao DO LAB - URINALYSIS O RDERABLES [facility] ([facility]) [address] [place] [address] * CULTURE URINE (09/17/2017 9:00 PM TRAVELING STOREKEEPER) Only the most recent of6 resultswithin the time period is included. Urine Culture Routine SEE NOTE [facility] (U) Comment: ??CULTURE, URINE, ROUTINE ?MICRO NUMBER: ?[id number] ??TEST STATUS: ? FINAL ??SPECIMEN SOURCE: ?? URINE ??SPECIMEN QUALITY: ??ADEQUATE ??RESULT: ?Multiple organisms present, each less than 10,000 ? CFU/mL. These organisms, commonly found on ? external and internal genitalia, are considered ? to be colonizers. No further testing performed. NO COLLECTION DATE RECEIVED. WE HAVE USED THE DATE THE SPECIMEN WAS RECEIVED BY THIS LABORATORY THE COLLECTION DATE. IF THIS IS INCORRECT, PLEASE CONTACT CLIENT SERVICES. PHONE NUMBER: [phone] Test Performed at: [email or web address] ??[phone] NIEVES VALDOVINOS MD Urine specimen (specimen) URINE / Unknown 09/17/2017 9:00 PM TRAVELING STOREKEEPER 09/17/2017 3:48 AM TRAVELING STOREKEEPER Narrative [facility] ([facility]) - 09/17/2017 9:00 PM TRAVELING STOREKEEPER Specimen Type->Urine Vickie Yao DO LAB - MICROBIOLOGY ORDERABLES Performing Organization Address [facility]/State/[facility] Co de Phone Number [facility] ([facility]) [address] [place] [address] * CULTURE MYCOPLASMA HOMINIS+UREAPLASMA CULTURE (09/16/2017 1:17 PM TRAVELING STOREKEEPER) Specimen Source URINE [facility] ([facility]) Status TNP [facility] ([facility]) Comment: TEST(S) NOT PERFORMED: ?STATUS ?MYCOPLASMA HOMINIS ?UREAPLASMA SPECIES * Test not performed. ?* * No suitable specimen received. * REPORT COMMENT: SPECIMEN TYPE->URINE Test Performed at: [email or web address] [address] [place] [address] ??[id number] Adriana FIGUEROA Urine specimen (specimen) 09/16/2017 1:17 PM TRAVELING STOREKEEPER 09/17/2017 1:44 AM TRAVELING STOREKEEPER Narrative [facility] ([facility]) - 09/20/2017 4:00 PM TRAVELING STOREKEEPER Specimen Type->Urine Vickie Wright Najma LAB - MICROBIOLOGY ORDERABLES Performing Organization Address City/[facility]/ZIP Co de Phone Number [facility] ([facility]) [id number] * URINALYSIS AUTO - POINT OF CARE (AMB) [facility] (09/16/2017 9:52 AM TRAVELING STOREKEEPER) Only the most recent of5 resultswithin the time period is included. Pathologist [facility] Glucose UA neg [facility] Bilirubin UA POCT neg [facility] Ketones UA POCT neg [facility] Specific [place] UA 1.015 [facility] Blood Urine POCT 1 [facility] pH UA 6.0 [facility] Protein UA neg [facility] Urobilinogen UA neg [facility] Nitrite UA neg [facility] WBC UA neg [facility] Urine specimen (specimen) 09/16/2017 9:52 AM TRAVELING STOREKEEPER Vickie Wright Najma [facility] LAB - POINT OF CAR E ORDERABLES Performing Organization Address City/[facility] Co de Phone Number [facility] [address] * (ABNORMAL) BASIC METABOLIC PANEL (CALCIUM TOTAL) (02/22/2017 11:09 AM CDT) Only the most recent of13 resultswithin the time period is included. BUN 12 7 - 26 mg/dL [facility] Creatinine 1.2 0.6 - 1.2 mg/dL [facility] Sodium 139 136 - 145 mmol/L [facility] Potassium 4.5 3.5 - 4.5 mmol/L [facility] Chloride 105 98 - 107 mmol/L [facility] CO2 23 22 - 29 mmol/L [facility] Glucose 86 70 - 115 mg/dL [facility] Calcium 9.4 8.4 - 10.2 mg/dL [facility] Anion Gap 16 8 - 18 [facility] BUN/Creatinine Ratio 10 7 - 23 [facility] Osmolality Calculated 287 270 - 300 mOsm/kg [facility] eGFR 54(L) >60 mL/min/1.7 3 m2 [facility] Blood specimen (specimen) BLOOD SPECIMEN / Unknown 02/22/2017 11:09 AM CDT 02/22/2017 11:32 AM CDT Vickie Yao DO LAB - CHEMISTRY OR DERABLES [facility] [address] [phone] * (ABNORMAL) CBC W/O DIFFERENTIAL (02/02/2017 7:24 AM CDT) Only the most recent of8 resultswithin the time period is included. WBC 8.1 3.5 - 10.5 10? 3 /uL [facility] Comment:Results are confirme d by repeat analysis. RBC 3.47(L) 3.90 - 5.00 10? 6 /uL [facility] Hemoglobin 10.2(L) 12.0 - 15.5 g/dL [facility] Hematocrit 31.0(L) 35.0 - 45.0 % [facility] MCV 89.3 81.0 - 97.0 fL [facility] MCH 29.4 28.0 - 34.0 pg [facility] MCHC 32.9 32.0 - 36.0 g/dL [facility] Platelet Count 256 150 - 400 10? 3 /uL [facility] RDW-SD 44.3 36.0 - 50.0 fL [facility] RDW-CV 13.5 11.2 - 14.8 % [facility] MPV 10.1 9.3 - 12.8 fL [facility] nRBC Absolute 0.00 0 10? 3 /uL [facility] nRBC Auto 0.0 0 /100 WBC [facility] Blood specimen (specimen) BLOOD SPECIMEN / Unknown 02/02/2017 7:24 AM CDT 02/02/2017 7:38 AM CDT Annetta Godfrey APARTMENT ASSISTANT MANAGER-WEB UI SOFTWARE ENGINEER LAB - HEMATOLOG Y ORDERABLES [facility] [address] [place] [address] * (ABNORMAL) CBC W AUTO DIFFERENTIAL (01/31/2017 9:27 PM CDT) Only the most recent of12 resultswithin the time period is included. WBC 17.6(H) 3.5 - 10.5 10? 3 /uL [facility] Comment:Results are confirme d by repeat analysis. RBC 4.00 3.90 - 5.00 10? 6 /uL [facility] Hemoglobin 11.8(L) 12.0 - 15.5 g/dL [facility] Hematocrit 34.7(L) 35.0 - 45.0 % [facility] MCV 86.8 81.0 - 97.0 fL [facility] MCH 29.5 28.0 - 34.0 pg [facility] MCHC 34.0 32.0 - 36.0 g/dL [facility] Platelet Count 326 150 - 400 10? 3 /uL [facility] RDW-SD 41.6 36.0 - 50.0 fL [facility] RDW-CV 13.0 11.2 - 14.8 % [facility] MPV 10.1 9.3 - 12.8 fL [facility] nRBC Absolute 0.00 0 10? 3 /uL [facility] nRBC Auto 0.0 0 /100 WBC [facility] Neutrophils % 86.1(H) 35.0 - 70.0 % [facility] Lymphocytes % 9.8(L) 19.7 - 55.1 % [facility] Monocytes % 3.9 3.0 - 15.0 % [facility] Eosinophils % 0.1 0.0 - 6.0 % [facility] Basophil % 0.1 0.0 - 1.5 % [facility] Neutrophils Absolute 15.1(H) 1.6 - 7.0 10? 3 /uL [facility] Lymphocyte Absolute 1.7 0.8 - 2.9 10? 3 /uL [facility] Monocytes Absolute 0.69(H) 0.14 - 0.66 10? 3 /uL [facility] Eosinophils Absolute 0.02 0.00 - 0.22 10? 3 /uL [facility] Basophils Absolute 0.02 0.00 - 0.06 10? 3 /uL [facility] Reflex Status Auto Differential is verified. [facility] Immature Granulocytes % 0.3 0.0 - 1.0 % [facility] Blood specimen (specimen) BLOOD SPECIMEN / Unknown 01/31/2017 9:27 PM CDT 01/31/2017 9:35 PM CDT Vickie Yao DO LAB - HEMATOLOGY O RDERABLES [facility] [address] [place] [address] * PATHOLOGY TISSUE (01/31/2017 7:42 PM CDT) Only the most recent of2 resultswithin the time period is included. 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 There is no distal ureter. FINAL DIAGNOSIS: KIDNEY, RIGHT, LAPAROSCOPIC NEPHRECTOMY: - ? 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 RENAL PELVIS WITH MIXED INFLAMMATION AND GRANULATION TISSUE - ? NO EVIDENCE OF MALIGNANCY GROSS DESCRIPTION: Received in a container labeled right kidney for natalie and Anna Stephen , is a kidney with surrounding perinephric fat measuring 15.5 cm from the superior and inferior pole, 7.5 cm from the medial to the lateral surface, and 3.6 cm from the anterior to the posterior surface. ??The specimen weighs 285 grams. On sectioning the kidney, no tumor or lesions are noted. Tile And Mottle Supervisor sections are submitted as follows: A1- Hilar margin (vessels and potential ureter) A2- A8 ? Sections from the superior pole to the inferior pole. MICROSCOPIC DESCRIPTION: Sections of the right kidney for perm show renal parenchyma with patchy chronic inflammation and edema. The renal pelvis shows granulation tissue with mixed inflammatory infiltrate. There is no evidence of malignancy or congenital cystic process. MN/MS The performance characteristics of all immunohistochemical and indirect immunofluorescence stains (if any) cited in this report were determined by the Histopathology Laboratory of [facility].?? Some of these tests were developed by our own laboratory and have not been cleared or approved by the US Food and Drug Administration.?The FDA does not require this test to go through premarket FDA review.?These tests are used for clinical purposes. They should not be regarded as investigational or for research.?? This laboratory is certified under the Clinical Laboratory Improvement Amendments (CLIA) as qualified to perform high complexity clinical laboratory testing. This case has been personally reviewed and interpreted by the attending (teaching) pathologist. Final Diagnosis performed by Jasbir Bailey DO. Electronically signed 02/04/2017 [facility] PATHOLOGY LAB ([facility]) Biopsy, NOS (Kidney, Right) 01/31/2017 7:42 PM CDT 02/01/2017 6:27 AM CDT Narrative [facility] PATHOLOGY LAB ([facility]) - 02/04/2017 3:22 PM CDT Pre-op diagnosis: RIGHT FLANK PAIN Vickie Yao DO LAB - PATHOLOGY/CY TOLOGY ORDERABLES Performing Organization Address City/[facility] Co de Phone Number [facility] PATHOLOGY LAB ([facility]) * CROSSMATCH RBC LEUKOREDUCED (01/31/2017 4:48 PM CDT) 01/31/2017 4:48 PM CDT 01/31/2017 4:48 PM CDT Narrative [facility] - 01/31/2017 4:48 PM CDT # of Units->2 Vickie Yao DO LAB - BLOOD BANK O RDERABLES [facility] [address] [place] [address], [facility] * TYPE + SCREEN PANEL (01/31/2017 4:23 PM CDT) Only the most recent of2 resultswithin the time period is included. Typem O POS [facility] Antibody Screen NEG [facility] Blood specimen (specimen) 01/31/2017 4:23 PM CDT 01/31/2017 4:46 PM CDT Vickie Rolono LAB - BLOOD BANK O RDERABLES [facility] [address] * HCG URINE QUALITATIVE - POCT (IP) [facility] (01/31/2017 9:16 AM CDT) Only the most recent of5 resultswithin the time period is included. NEGATIVE [facility] (BEAKER) Comment:Minister Helper: SHELBY WILEY 01/31/2017 9:16 AM CDT Vickie Yao LAB - POINT OF CAR E ORDERABLES Performing Organization Address City/[facility]/ZIP Co de Phone Number [facility] ([place]) * NM RENAL SCAN W FLOW AND FUNCTION (12/27/2016 10:04 AM CDT) Anatomical Region Laterality Modality Abdomen Other Impressions 12/27/2016 5:32 PM CDT Impression: 1. Normal perfusion and function of the left kidney without evidence of obstruction. 2. Normal flow fraction of the right kidney with a clearance into the right nephrostomy tube. 3. Split function is 75% left and 25% right. This report was approved ??by Victor Manuel Fam M.D. ?? on 12/27/2016 5:21 PM . I, Dr. CECELIA DANIEL D.O. have personally reviewed and interpreted this examination/study. This report was electronically signed by CECELIA DANIEL D.O. ??on 12/27/2016 5:32 PM . Narrative 12/27/2016 5:32 PM CDT Procedure: Renal blood flow and function without Lasix diuresis. 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 Technique: ??10 mCi of Tc-99m MAG3, injected IV in the left forearm. Sequential dynamic blood flow images of the abdomen were obtained in the anterior and posterior projections for 30 minutes following radiotracer injection. Patient's weight 224 lb, height 160 cm. Findings: Comparison made with prior study dated 11/23/2016. Blood flow images reveal adequate bilateral blood perfusion greater in the left kidney compared to the right. ??Sequential functional images obtained for 30 minutes reveal prompt uptake and excretion of tracer activity in the left kidney with intermittent visualization of the left ureter. There is prompt tracer uptake from the right kidney with excretion in the right nephrostomy tube. The nephrostomy tube was not clamped during the study since the technologists were not aware of its presence. The right ureter was intermittently visualized during the study. Quantitative function Left ? Right ?Renography 4 ?4.5 ?Peak time (min) 5.5 ? 4.5 ?Half-peak time (min) 75 ?25 ? Differential function (%) Previously, 78% left and 22% right. Procedure Note Cecelia Daniel, DO - 11/04/2017 Procedure: Renal blood flow and function without Lasix diuresis. History: 26-year-old female with history of right lower UPJ obstructionand duplicated ureter system. Technique: 10 mCi of Tc-99m MAG3, injected IV in the left forearm.Sequential dynamic blood flow images of the abdomen were obtained in theanterior and posterior projections for 30 minutes following radiotracerinjection. Patient's weight 224 lb, height 160 cm. Findings: Comparison made with prior study dated 11/23/2016. Blood flow images reveal adequate bilateral blood perfusion greater in theleft kidney compared to the right. Sequential functional images obtainedfor 30 minutes reveal prompt uptake and excretion of tracer activity inthe left kidney with intermittent visualization of the left ureter. There is prompt tracer uptake from theright kidney with excretion in the right nephrostomy tube. The nephrostomytube was not clamped during the study since the technologists were notaware of its presence. The right ureter was intermittently visualized during the study. Quantitative function Left Right Renography 4 4.5 Peak time (min) 5.5 4.5 Half-peak time (min) 75 25 Differential function (%) Previously, 78% left and 22% right. IMPRESSION Impression: 1. Normal perfusion and function of the left kidney without evidence ofobstruction. 2. Normal flow fraction of the right kidney with a clearance into theright nephrostomy tube. 3. Split function is 75% left and 25% right. This report was approved by Victor Manuel Fam M.D. on 12/27/2016 5:21 PM. I, Dr. CECELIA DANIEL D.O. have personally reviewed and interpreted thisexamination/study. This report was electronically signed by CECELIA DANIEL D.O. on 12/27/20165:32 PM . Iza FLORES NM ORDERABLES * [facility]R [facility] [facility] (12/21/2016 1:48 PM CDT) Only the most recent of2 resultswithin the time period is included. PT 12.7 12.1 - 14.8 Seconds [facility] INR 1.0 See Comment [facility] Comment: Suggested therapeutic range for low-intensity coumadin therapy for venous thromboembolism prophylaxis is an INR of 2.0-3.0. ??For high risk patients (Mitral Valve Prosthesis, Atrial Fibrillation, history of TIA/stroke), suggested prophylactic therapeutic range is an INR of 2.5-3.5. Blood specimen (specimen) BLOOD SPECIMEN / Unknown 12/21/2016 1:48 PM CDT 12/21/2016 1:52 PM CDT Narrative [facility] - 12/21/2016 2:08 PM CDT Is patient on Heparin, Argatroban or Dabigatran?->N Iza [facility] - [place] [address], [facility] [phone] * CT ABDOMEN PELVIS W CONTRAST (12/20/2016 8:02 PM CDT) Anatomical Region Laterality Modality Abdomen, Pelvis Other Impressions 12/21/2016 2:56 PM CDT IMPRESSION: 1. Interval placement of a percutaneous right nephrostomy tube with mild right hydronephrosis, decreased from the prior exam dated 09/28/2016. Duplicated bilateral renal collecting systems. 2. Perfusion defects in the right kidney with perinephric fat stranding is concerning for pyelonephritis. No retroperitoneal or perinephric abscess is identified. Preliminary findings discussed with Dr. Carrillo by Dr. Goyal on 12/20/2016 at 8:22 PM. Report dictated by Truong Goyal M.D. (resident). This report was approved ??by Truong Goyal M.D. ?? on 12/21/2016 8:48 AM . I, Dr. DAO DICKINSON M.D. have personally reviewed and interpreted this examination/study. This report was electronically signed by DAO DICKINSON M.D. ??on 12/21/2016 2:56 PM . Narrative 12/21/2016 2:56 PM CDT EXAMINATION: Computed tomography of the abdomen and pelvis with contrast HISTORY: 26-year-old female who underwent percutaneous nephrostomy tube placement on 12/01/2016 prior to attempted UPJ obstruction obliteration and percutaneous nephrolithotomy. Patient returns to the ED tonight for nausea, fever, back pain, and white sediment in her nephrostomy bag. TECHNIQUE: Computed tomography of the abdomen and pelvis was performed following the uneventful administration of 100 mL Omnipaque 350 intravenous contrast according to standard protocol. FINDINGS: Comparison is made to prior study dated 09/28/2016. The visualized lung bases are clear of focal consolidation. There is no pleural effusion. The heart size is normal without pericardial effusion. The liver enhances homogenously. ??No focal intrahepatic lesions are seen. ??The gallbladder is normal without evidence of gallstones or gallbladder wall thickening. There is no intrahepatic or extrahepatic biliary ductal dilatation. ??The spleen enhances homogenously. ?? The pancreas is normal. ??The adrenal glands are normal. Duplicated renal collecting systems are seen bilaterally. There has been interval placement of a percutaneous right nephrostomy tube with pigtail in inferior pole calyx. Mild left hydronephrosis is present, decreased from the prior exam dated 09/28/2016. Multiple cortical perfusion defects involving the mid and upper pole of the right kidney are concerning for pyelonephritis. Right perinephric fat stranding is seen. No perinephric or retroperitoneal abscess is identified. The left kidney enhances normally. There is no left hydronephrosis or hydroureter. No renal, ureteral or bladder calculi are seen. The stomach is normal. ??The small bowel and large bowel are normal in course and caliber without evidence of bowel wall thickening or bowel obstruction. ??The appendix is normal in appearance and location. There is no evidence of retroperitoneal lymphadenopathy. ??No free intraperitoneal air is seen. The enhanced abdominal aorta is normal in course and caliber. The remaining enhanced vascular structures are normal. The urinary bladder is is nondistended. The uterus is normal. No free pelvic fluid is seen. Bone windows demonstrate no suspicious lytic or blastic lesions. Procedure Note Dao Dickinson MD - 11/04/2017 EXAMINATION: Computed tomography of the abdomen and pelvis with contrast HISTORY: 26-year-old female who underwent percutaneous nephrostomy tubeplacement on 12/01/2016 prior to attempted UPJ obstruction obliteration andpercutaneous nephrolithotomy. Patient returns to the ED tonight fornausea, fever, back pain, and white sediment in her nephrostomy bag. TECHNIQUE: Computed tomography of the abdomen and pelvis was performedfollowing the uneventful administration of 100 mL Omnipaque 350intravenous contrast according to standard protocol. FINDINGS: Comparison is made to prior study dated 09/28/2016. The visualized lung bases are clear of focal consolidation. There is nopleural effusion. The heart size is normal without pericardial effusion. The liver enhances homogenously. No focal intrahepatic lesions are seen.The gallbladder is normal without evidence of gallstones or gallbladderwall thickening. There is no intrahepatic or extrahepatic biliary ductaldilatation. The spleen enhances homogenously. The pancreas is normal. The adrenal glands are normal. Duplicated renal collecting systems are seen bilaterally. There has beeninterval placement of a percutaneous right nephrostomy tube with pigtailin inferior pole calyx. Mild left hydronephrosis is present, decreasedfrom the prior exam dated 09/28/2016. Multiple cortical perfusion defects involving the mid and upper pole ofthe right kidney are concerning for pyelonephritis. Right perinephric fatstranding is seen. No perinephric or retroperitoneal abscess isidentified. The left kidney enhances normally. There is no left hydronephrosis or hydroureter. No renal,ureteral or bladder calculi are seen. The stomach is normal. The small bowel and large bowel are normal incourse and caliber without evidence of bowel wall thickening or bowelobstruction. The appendix is normal in appearance and location. There isno evidence of retroperitoneal lymphadenopathy. No free intraperitoneal air is seen. The enhanced abdominal aorta is normal in course and caliber. Theremaining enhanced vascular structures are normal. The urinary bladder is is nondistended. The uterus is normal. No freepelvic fluid is seen. Bone windows demonstrate no suspicious lytic or blastic lesions. IMPRESSION IMPRESSION: 1. Interval placement of a percutaneous right nephrostomy tube with mildright hydronephrosis, decreased from the prior exam dated 09/28/2016.Duplicated bilateral renal collecting systems. 2. Perfusion defects in the right kidney with perinephric fat stranding isconcerning for pyelonephritis. No retroperitoneal or perinephric abscessis identified. Preliminary findings discussed with Dr. Carrillo by Dr. Goyal on 12/20/2016at 8:22 PM. Report dictated by Truong Goyal M.D. (resident). This report was approved by Truong Goyal M.D. on 12/21/2016 8:48 AM. I, Dr. DAO DICKINSON M.D. have personally reviewed and interpreted thisexamination/study. This report was electronically signed by DAO DICKINSON M.D. on 12/21/20162:56 PM . Lucina Villanueva MD CT ORDERABLES * (ABNORMAL) URINALYSIS REFLEX TO MICROSCOPIC NO CULTURE (12/20/2016 6:29 PM CDT) Only the most recent of2 resultswithin the time period is included. Color UA Yellow Straw, Yellow, Colorless, Light Yellow [facility] Clarity UA Hazy(A) Clear [facility] Specific [place] UA 1.022 1.001 - 1.030 [facility] pH UA 6.0 5.0 - 8.0 [facility] Protein UA 20 <=20 mg/dL [facility] Glucose UA Negative Negative mg/dL [facility] Ketone UA Negative Negative mg/dL [facility] Bilirubin UA Negative Negative mg/dL [facility] Blood UA Small(A) Negative [facility] Nitrite UA Negative Negative [facility] Leukocyte Esterase Negative Negative [facility] Urobilinogen UA <2.0 <2.0 mg/dL [facility] RBC UA 7 0 - 8 /HPF [facility] WBC UA 1 0 - 2 /HPF [facility] Bacteria UA Rare Rare, Occasional, None /HPF [facility] Squamous Epithelial Cells UA 3(H) 0 - 1 /HPF [facility] Mucus UA Many(A) None /LPF [facility] Urine specimen (specimen) 12/20/2016 6:29 PM CDT 12/20/2016 6:38 PM CDT Lucina Villanueva MD LAB - URINALYSIS ORD ERABLES Performing Organization Address [facility]/ZIP Co de Phone Number [address] [phone] * CULTURE BLOOD (12/20/2016 6:04 PM CDT) Only the most recent of2 resultswithin the time period is included. Culture Blood No Growth at 5 days [facility] Blood specimen (specimen) (Venous, Peripheral) 12/20/2016 6:04 PM CDT 12/20/2016 6:08 PM CDT Narrative [facility] - 12/25/2016 6:15 PM CDT Draw 15 minutes after Culture 1 from a different site Lucina Villanueva MD LAB - MICROBIOLOGY O RDERABLES Performing Organization Address City/[facility]/[place] [address], [facility] [phone] * LACTIC ACID BLOOD (12/20/2016 6:04 PM CDT) Lactic Acid-Stat 0.8 0.5 - 2.0 mmol/L [facility] Blood specimen (specimen) BLOOD SPECIMEN / Unknown 12/20/2016 6:04 PM CDT 12/20/2016 6:07 PM CDT Lucina Villanueva MD LAB - CHEMISTRY DEL R[place] [facility] Organization Address City/State/[facility] Co de Phone Number [address] [phone] * (ABNORMAL) COMPREHENSIVE METABOLIC PANEL (12/20/2016 5:50 PM CDT) Pathologist [facility] BUN 11 7 - 26 mg/dL [facility] Creatinine 0.8 0.6 - 1.2 mg/dL [facility] Sodium 137 136 - 145 mmol/L [facility] Potassium 4.0 3.5 - 4.5 mmol/L [facility] Chloride 104 98 - 107 mmol/L [facility] CO2 20(L) 22 - 29 mmol/L [facility] Glucose 96 70 - 115 mg/dL [facility] Calcium 9.1 8.4 - 10.2 mg/dL [facility] Protein Total 7.5 6.0 - 8.3 g/dL [facility] Albumin 3.1(L) 3.4 - 5.0 g/dL [facility] Bilirubin Total 0.4 0.2 - 1.2 mg/dL [facility] Alkaline Phosphatase 65 40 - 150 Units/L [facility] ALT 10 0 - 55 Units/L [facility] AST 14 5 - 34 Units/L [facility] Anion Gap 17 8 - 18 [facility] BUN/Creatinine Ratio 14 7 - 23 [facility] Osmolality Calculated 283 270 - 300 mOsm/kg [facility] Albumin/Globulin Ratio 0.7(L) 1.1 - 2.3 [facility] eGFR >60 >60 mL/min/1.7 3 m2 [facility] Blood specimen (specimen) BLOOD SPECIMEN / Unknown 12/20/2016 5:50 PM CDT 12/20/2016 5:53 PM CDT Lucina Villanueva MD LAB - CHEMISTRY [place] [address] [phone] * PURPLE TOP TUBE EXTRA (12/20/2016 5:24 PM CDT) Extra Tube hold [facility] Blood specimen (specimen) BLOOD SPECIMEN / Unknown 12/20/2016 5:24 PM CDT 12/20/2016 5:28 PM CDT Sushil Ramos MD LAB - CHEMISTRY [place] R[place] Performing Organization Address [facility]/ZIP Co de Phone Number [address] [phone] * GREEN TOP TUBE EXTRA (12/20/2016 5:24 PM CDT) Extra Tube Auto Resulted [facility] Blood specimen (specimen) BLOOD SPECIMEN / Unknown 12/20/2016 5:24 PM CDT 12/20/2016 5:29 PM CDT Sushil Ramos MD LAB - CHEMISTRY [place] Performing Organization Address [facility]/ZIP Co de Phone Number [address] [phone] * PTH INTACT W/O CALCIUM (12/02/2016 6:58 AM CDT) PTH Intact 37.1 15.0 - 65.0 pg/mL [facility] Blood specimen (specimen) BLOOD SPECIMEN / Unknown 12/02/2016 6:58 AM CDT 12/02/2016 7:02 AM CDT Annetta Godfrey APARTMENT ASSISTANT MANAGER-WEB UI SOFTWARE ENGINEER LAB - CHEMISTRY ORDERABLES Performing Organization Address City/[facility]/[place] [address], [facility] [phone] * CULTURE ANAEROBE (12/01/2016 5:33 PM CDT) Culture Anaerobic No Growth at 1 week [facility] Lesion 12/01/2016 5:33 PM CDT 12/01/2016 6:18 PM CDT [facility] - 12/08/2016 9:57 AM CDT Right kidney stone Specimen Type->Lesion Vickie Yao LAB - MICROBIOLOGY ORDERABLES Performing Organization Address City/[facility]/ZIP Co de Phone Number [address] [phone] * CULTURE AEROBIC (12/01/2016 5:33 PM CDT) Culture Aerobic No Growth at 1 week [facility] Gram Stain No Organism Seen [facility] Lesion ENTIRE KIDNEY / Unknown 12/01/2016 5:33 PM CDT 12/01/2016 6:18 PM CDT [facility] - 12/08/2016 1:08 PM CDT Right kidney stone Specimen Type->Lesion Specimen Source->Kidney Gram Stains are routinely screened for the presence of Polymorphonuclear Cells. Vickie Yao LAB - MICROBIOLOGY ORDERABLES Performing Organization Address [facility] Co de Phone Number [address] [phone] * FL NANCY SURGERY (12/01/2016 5:33 PM CDT) Anatomical Region Laterality Modality Other Narrative 12/01/2016 5:33 PM CDT Fluoroscopy was used for this exam. Please see the Operative report. Procedure Note Provider, MD Dave - 11/04/2017 Fluoroscopy was used for this exam. Please see the Operative report. Vickie Yao FLUOROSCOPY ORDERA BLES * STONE ANALYSIS QUANT (12/01/2016 5:20 PM CDT) Color UA Brown [facility] ([facility]) Stone Size 6x5x4 mm [facility] ([facility]) Weight 91.0 mg [facility] ([facility]) Stone Composition Comment SL [facility] (BEAKER) Comment:Percentage (Represen ts the % composition) Calcium Oxalate Monohydrate 80 % [facility] ([facility]) Calcium Phosphate 20 % [facility] (BE[facility]) Nidus No Nidus visualized [facility] (BE[facility]) Please Note Comment [facility] ([facility]) Comment: Calculi report without photograph will follow via computer, mail, or squeegeer and former delivery. Comment Comment [facility] ([facility]) Comment: Physician questions regarding Calculi Analysis contact [facility] at: [phone]. Disclaimer Comment [facility] ([facility]) Comment: This test was developed and its performance characteristics determined by [facility]. It has not been cleared or approved by the Food and Drug Administration. Calculus specimen (specimen) ENTIRE KIDNEY / Unknown 12/01/2016 5:20 PM CDT 01/05/2017 9:48 AM CDT Narrative [facility] (BE[facility]) - 01/12/2017 3:17 PM CDT Kidney stones Performed at: ??[address] - [address] ??[id number] [employer] Platform[employer] Manager: Nathanael Miller MD, Phone: ??[phone] Iza Priest APARTMENT ASSISTANT MANAGER-WEB UI SOFTWARE ENGINEER LAB - URINE CHEM ISTRY ORDERABLES [facility] ([place]) * IR PERC NEPHROSTOMY (12/01/2016 1:45 PM CDT) Anatomical Region Laterality Modality Other Impressions 12/01/2016 8:19 PM CDT Impression:? 1. ??Right antegrade nephrostogram demonstrates moderately dilated right lower pole duplicated renal collecting system with no passage of contrast seen draining into the right ureter. Findings are compatible with known UPJ obstruction. 2. ??Unsuccessful placement of a right nephroureteral catheter secondary to severe UPJ obstruction. After discussing the findings with Dr. Yao at the time of the procedure, the decision was made to place a 8.5 Kyrgyz right nephrostomy catheter instead of a nephroureteral catheter. Plan and follow up: ??The patient is scheduled today with Dr. Yao for further surgical intervention. I, Dr. Mitchell, performed/was present throughout the procedure and provided the moderate sedation service. Please see nursing flow chart for more details. . This report was electronically signed by BURAK MITCHELL M.D. ??on 12/01/2016 8:19 PM . Narrative 12/01/2016 8:19 PM CDT History: 26 y.o. 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 Patient had prior right ureteroscopy complicated with injury to lower pole requiring stent placement on 09/28/16. Patient underwent diagnostic ureteroscopy and stent removal on 11/10/16. Since then, patient reports 5/10 constant pain in lower right abdomen, which is 2/10 with pain medications. Patient presents to IR for right nephroureteral catheter placement in lower pole collecting system prior to PCNL with Dr. Yao. Operators: 1. ??Dr. Mitchell, Attending Physician Anesthesia: 1. ??Local anesthesia - 10 ml of 1 % lidocaine 2. ??Intravenous Conscious Sedation (Versed 5 mg, Fentanyl 250 mcg and Benadryl 50 mg). Procedure: 1. ??Non Clinical Advisor radiograph of the abdomen. 2. ??Limited ultrasound of the right kidney. 3. ??Ultrasound and fluoroscopic-guided access of right lower pole duplicated collecting system followed by antegrade nephrostogram. 4. ??Unsuccessful attempts to recannulize the duplicated right lower pole ureter. 5. ??Fluoroscopic-guided placement of a 8.5 Kyrgyz locking pigtail catheter in right lower pole renal pelvis. 6. ??Post-procedure right antegrade nephrostogram. Sedation start time: 1149 ?Sedation end time: 1341 Fluoroscopy time: 21.5 minutes. Contrast: 10 mL of Visipaque 320. Procedure in detail: ??The procedure, possible complications and the use of conscious sedation were explained to the patient in detail, and informed consent was obtained.? The patient was brought to the angiography suite and placed in the prone position on the fluoroscopic table and the region of the right ??flank was prepped and draped in a sterile manner. Patient was given 1 g of Ancef as prophylactic antibiotics prior to the procedure. The patient was initiated intravenous conscious sedation with Versed, Fentanyl, and Benadryl and maintained throughout the procedure. A qualified radiology nurse monitored patient?s vital signs. A motion picture commentator film of abdomen was obtained which demonstrated a 4 mm calculus overlying the right lower pole. Local anesthesia at the skin entry site was achieved by the local infiltration of 1% lidocaine. Limited ultrasound of the right kidney demonstrated moderate dilated right lower pole calyces and renal pelvis compatible with the known duplicated right lower pole renal collecting system. Under ultrasound guidance, the right lower pole calyx was accessed utilizing a 21-gauge Chiba needle. Access was confirmed with aspiration of urine and hand injection of contrast obtaining an antegrade nephrostogram. The antegrade nephrostogram demonstrated moderate dilated right lower pole duplicated renal collecting system and abrupt obstruction with a dilated renal pelvis. There was no passage of contrast seen draining into the duplicated right ureter. Findings are compatible with known UPJ obstruction. A 0.018 Nitrex wire was then advanced through the right lower pole calyx and coiled within the dilated renal pelvis. The inner dilator of the AccuStick was advanced over the Nitrex wire and into the right lower pole calyx. The wire was noted to be coil within the right lower pole calyx and attempts to reduce the loop were unsuccessful. As a result, the access site catheter was removed and another 21-gauge Chiba needle was advanced under fluoroscopy into the right lower pole calyx at a more favorable angle. The 0.018 Nitrex was advanced through the right lower pole calyx and coiled within the dilated renal pelvis.?An Accu-stick assembly was advanced over the 0.018 wire into the renal pelvis. The inner stiffener and 0.018 wire were removed and a 0.035 wire was advanced into the renal pelvis. The AccuStick catheter was removed and exchanged for a 5 Kyrgyz sheath. Attempts at recannulizing the duplicated right lower pole ureter with several catheters and angle Glidewire were unsuccessful. Findings were discussed with Dr. Yao at the time of the procedure, and the decision was made to place a right nephrostomy catheter instead of a nephroureteral catheter. The sheath was removed and an 8.5 Kyrgyz locking pigtail catheter was advanced over the wire and coiled within the renal pelvis. Final post-procedure right antegrade nephrostogram demonstrated appropriate position of the catheter within the renal pelvis and again seen dilated renal pelvis and lower pole calyces without passage of contrast into the ureter. The catheter was capped and secured to skin with overlying sterile dressing. There were no complications and the patient was transferred in stable condition to the OR after the procedure. Procedure Note Burak Mitchell MD - 11/04/2017 History: 26 y.o. female with PMHx of arthritis, anxiety, andfrequent UTI's, and duplicated right collecting system with UPJobstruction with right lower pole stone and UPJ narrowing. Patient hadprior right ureteroscopy complicated with injury to lower pole requiring stent placement on 09/28/16. Patient underwentdiagnostic ureteroscopy and stent removal on 11/10/16. Since then, patientreports 5/10 constant pain in lower right abdomen, which is 2/10 with painmedications. Patient presents to IR for right nephroureteral catheter placement in lower pole collectingsystem prior to PCNL with Dr. Yao. Operators: 1. Dr. Mitchell, Attending Physician Anesthesia: 1. Local anesthesia - 10 ml of 1 % lidocaine 2. Intravenous Conscious Sedation (Versed 5 mg, Fentanyl 250 mcg andBenadryl 50 mg). Procedure: 1. Non Clinical Advisor radiograph of the abdomen. 2. Limited ultrasound of the right kidney. 3. Ultrasound and fluoroscopic-guided access of right lower poleduplicated collecting system followed by antegrade nephrostogram. 4. Unsuccessful attempts to recannulize the duplicated right lower poleureter. 5. Fluoroscopic-guided placement of a 8.5 Kyrgyz locking pigtail catheterin right lower pole renal pelvis. 6. Post-procedure right antegrade nephrostogram. Sedation start time: 1149 Sedation endtime: 1341 Fluoroscopy time: 21.5 minutes. Contrast: 10 mL of Visipaque 320. Procedure in detail: The procedure, possible complications and the use ofconscious sedation were explained to the patient in detail, and informedconsent was obtained.? The patient was brought to the angiography suite and placed in the proneposition on the fluoroscopic table and the region of the right flank wasprepped and draped in a sterile manner. Patient was given 1 g of Ancef asprophylactic antibiotics prior to the procedure. The patient was initiated intravenous conscious sedation with Versed,Fentanyl, and Benadryl and maintained throughout the procedure. Aqualified radiology nurse monitored patient?s vital signs. A motion picture commentator film of abdomen was obtained which demonstrated a 4 mm calculusoverlying the right lower pole. Local anesthesia at the skin entry sitewas achieved by the local infiltration of 1% lidocaine. Limited ultrasoundof the right kidney demonstrated moderate dilated right lower pole calyces and renal pelvis compatible withthe known duplicated right lower pole renal collecting system. Underultrasound guidance, the right lower pole calyx was accessed utilizing a53-drkwh Chiba needle. Access was confirmed with aspiration of urine and hand injection of contrastobtaining an antegrade nephrostogram. The antegrade nephrostogramdemonstrated moderate dilated right lower pole duplicated renal collectingsystem and abrupt obstruction with a dilated renal pelvis. There was no passage of contrast seen draining into theduplicated right ureter. Findings are compatible with known UPJobstruction. A 0.018 Nitrex wire was then advanced through the right lower pole calyxand coiled within the dilated renal pelvis. The inner dilator of theAccuStick was advanced over the Nitrex wire and into the right lower polecalyx. The wire was noted to be coil within the right lower pole calyx and attempts to reduce the loop wereunsuccessful. As a result, the access site catheter was removed andanother 21-gauge Chiba needle was advanced under fluoroscopy into theright lower pole calyx at a more favorable angle. The 0.018 Nitrex was advanced through the right lower pole calyxand coiled within the dilated renal pelvis.?An Accu-stick assembly wasadvanced over the 0.018 wire into the renal pelvis. The inner stiffenerand 0.018 wire were removed and a 0.035 wire was advanced into the renal pelvis. The AccuStick catheter wasremoved and exchanged for a 5 Kyrgyz sheath. Attempts at recannulizing theduplicated right lower pole ureter with several catheters and angleGlidewire were unsuccessful. Findings were discussed with Dr. Yao at the time of the procedure,and the decision was made to place a right nephrostomy catheter instead ofa nephroureteral catheter. The sheath was removed and an 8.5 Frenchlocking pigtail catheter was advanced over the wire and coiled within the renal pelvis. Final post-procedureright antegrade nephrostogram demonstrated appropriate position of thecatheter within the renal pelvis and again seen dilated renal pelvis andlower pole calyces without passage of contrast into the ureter. The catheter was capped and secured to skin with overlying steriledressing. There were no complications and the patient was transferred instable condition to the OR after the procedure. IMPRESSION Impression:? 1. Right antegrade nephrostogram demonstrates moderately dilated rightlower pole duplicated renal collecting system with no passage of contrastseen draining into the right ureter. Findings are compatible with knownUPJ obstruction. 2. Unsuccessful placement of a right nephroureteral catheter secondary tosevere UPJ obstruction. After discussing the findings with Dr. Yao atthe time of the procedure, the decision was made to place a 8.5 Frenchright nephrostomy catheter instead of a nephroureteral catheter. Plan and follow up: The patient is scheduled today with Dr. Yao forcritical access hospital surgical intervention. I, Dr. Mitchell, performed/was present throughout the procedure and providedthe moderate sedation service. Please see nursing flow chart for moredetails. . This report was electronically signed by BURAK MITCHELL M.D. on 12/01/20168:19 PM . Vickie Yao DO ORDERABLES * PTT [facility] (12/01/2016 10:19 AM CDT) APTT 28.9 23.0 - 38.4 Seconds [facility] Comment:Suggested therapeuti c range for full dose I.V. heparin therapy for venous thromboembolism is 66.0-91.0 seconds. Blood specimen (specimen) BLOOD SPECIMEN / Unknown 12/01/2016 10:19 AM CDT 12/01/2016 10:24 AM CDT Narrative [facility] - 12/01/2016 10:38 AM CDT Is patient on Heparin, Argatroban or Dabigatran?->N Burak Mitchell MD LAB - COAGULATION ORDERABLES [place] [id number] [address] [phone] * NM RENAL SCAN W DRUG (11/23/2016 10:02 AM CDT) Anatomical Region Laterality Modality Abdomen Other Impressions 11/23/2016 11:14 AM CDT Impression: 1. Duplication of the right renal collecting system with reduced blood flow and function to the right lower renal moiety with progressive filling on post Lasix images without evidence of excretion. 2. Grossly normal flow and function of the left kidney and the right upper renal moiety. 3. Split function is 78% left and 22% right. This report was approved ??by Esperanza Stahl ?? on 11/23/2016 10:55 AM . I, Dr. CECELIA DANIEL D.O. have personally reviewed and interpreted this examination/study. This report was electronically signed by CECELIA DANIEL D.O. ??on 11/23/2016 11:14 AM . Narrative 11/23/2016 11:14 AM CDT Procedure: Renal blood flow and function with Lasix diuresis. History: 26-year-old female with duplicated right renal collecting system. Technique: ??9.78 mCi of Tc-99m MAG3, injected IV in the LAC. Sequential dynamic blood flow images of the abdomen were obtained in the anterior and posterior projections for 30 minutes following radiotracer injection. 40 mg Lasix was injected over 3 minutes intravenously 30 minutes after the last image, with 30 minutes of additional dynamic image acquisition of the abdomen in anterior and posterior projections. Patient's weight 222 lb, height 160 cm. Findings: No prior studies are available for comparison. Right kidney :Blood flow images reveal normal flow to the upper renal moiety with delayed flow to the lower renal moiety. Sequential functional images obtained for 30 minutes reveal normal uptake and prompt excretion of the tracer from the upper renal moiety and minimal uptake with delayed filling in the lower renal moiety. The upper renal moiety ureter was visualized. Left kidney: Blood flow images reveal normal flow. Sequential functional images obtained for 30 minutes reveal normal uptake and prompt excretion of the radiotracer. The left ureter is visualized. Post-Lasix images demonstrate progressive filling of the right lower renal moiety without significant clearance. The residual tracer in the left kidney and the right upper renal moiety demonstrate near complete washout. Quantitative function Left ?Right ? Renography 4.5 ? 9.5 ? Peak time (min) 10 ? 14 ? Half-peak time (min) 78 ? 22 ? Differential function (%) Lasix renography Left ?Right 28 ? 54 ?Half-peak time (min) Procedure Note Cecelia Daniel, DO - 11/04/2017 Procedure: Renal blood flow and function with Lasix diuresis. 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 Technique: 9.78 mCi of Tc-99m MAG3, injected IV in the LAC. Sequentialdynamic blood flow images of the abdomen were obtained in the anterior andposterior projections for 30 minutes following radiotracer injection. 40mg Lasix was injected over 3 minutes intravenously 30 minutes after the last image, with 30 minutes ofadditional dynamic image acquisition of the abdomen in anterior andposterior projections. Patient's weight 222 lb, height 160 cm. Findings: No prior studies are available for comparison. Right kidney :Blood flow images reveal normal flow to the upper renalmoiety with delayed flow to the lower renal moiety. Sequential functionalimages obtained for 30 minutes reveal normal uptake and prompt excretionof the tracer from the upper renal moiety and minimal uptake with delayed filling in the lower renal moiety.The upper renal moiety ureter was visualized. Left kidney: Blood flow images reveal normal flow. Sequential functionalimages obtained for 30 minutes reveal normal uptake and prompt excretionof the radiotracer. The left ureter is visualized. Post-Lasix images demonstrate progressive filling of the right lower renalmoiety without significant clearance. The residual tracer in the left kidney and the right upper renal moietydemonstrate near complete washout. Quantitative function Left Right Renography 4.5 9.5 Peak time (min) 10 14 Half-peak time (min) 78 22 Differential function (%) Lasix renography Left Right 28 54 Half-peak time (min) IMPRESSION Impression: 1. Duplication of the right renal collecting system with reduced bloodflow and function to the right lower renal moiety with progressive fillingon post Lasix images without evidence of excretion. 2. Grossly normal flow and function of the left kidney and the right upperrenal moiety. 3. Split function is 78% left and 22% right. This report was approved by Esperanza Stahl on 11/23/2016 10:55 AM . I, Dr. CECELIA DANIEL D.O. have personally reviewed and interpreted thisexamination/study. This report was electronically signed by CECELIA DANIEL D.O. on 11/23/201611:14 AM . Vickie Yao DO AL ORDERABLES * FL CYSTOGRAM (11/10/2016 1:24 PM CDT) Only the most recent of2 resultswithin the time period is included. Anatomical Region Laterality Modality Abdomen, Pelvis Other Narrative 11/10/2016 1:24 PM CDT Fluoroscopy was used for this exam. Please see the Operative report. Procedure Note ProviderDave MD - 11/04/2017 Fluoroscopy was used for this exam. Please see the Operative report. Monse Campos MD FLUOROSCOPY ORDERABLES * HEMATOCRIT (09/28/2016 5:32 PM TRAVELING STOREKEEPER) Hematocrit 35.9 35.0 - 45.0 % [facility] Blood specimen (specimen) BLOOD SPECIMEN / Unknown 09/28/2016 5:32 PM TRAVELING STOREKEEPER 09/28/2016 5:52 PM TRAVELING STOREKEEPER Monse Campos MD LAB - HEMATO LOGY ORDERABLES [address] [phone] * HEMOGLOBIN (09/28/2016 5:32 PM TRAVELING STOREKEEPER) Hemoglobin 12.1 12.0 - 15.5 g/dL [facility] Blood specimen (specimen) BLOOD SPECIMEN / Unknown 09/28/2016 5:32 PM TRAVELING STOREKEEPER 09/28/2016 5:52 PM TRAVELING STOREKEEPER Monse Campos MD LAB - HEMATO LOGY ORDERABLES Performing Organization Address City/State/[facility] Co de Phone Number [address] [phone] * CT ABDOMEN PELVIS WO CONTRAST (09/28/2016 12:04 PM TRAVELING STOREKEEPER) Anatomical Region Laterality Modality Abdomen, Pelvis Other Impressions 09/29/2016 2:06 PM TRAVELING STOREKEEPER IMPRESSION: 1. Duplicated right renal collecting system with perforation of the right ureteropelvic junction of the right lower pole moiety. 2. Interval placement of a right nephroureteral stent extending from the ureteropelvic junction of the lower pole moiety to the urinary bladder. 3. Severe right lower pole hydronephrosis with 7 mm calculus in the inferior pole of the right kidney. Mild right upper pole caliectasis. Preliminary results were discussed with Iza Priest NP by Dr. Leija on 09/28/2016 at 3:23 PM. Dictated by Giacomo Leija MD (associate professor of radiology). I, Dr. MAURO SHELLEY M.D. have personally reviewed and interpreted this examination/study. This report was electronically signed by MAURO SHELLEY M.D. ??on 09/29/2016 2:06 PM . Narrative 09/29/2016 2:06 PM TRAVELING STOREKEEPER EXAMINATION: Computed tomography (CT) of the abdomen and pelvis without intravenous contrast HISTORY: History of kidney stones, concern for right ureteral injury after ureteroscopy TECHNIQUE: CT abdomen and pelvis was performed without intravenous contrast in the supine position. Additional prone images were obtained through the kidneys. COMPARISON: Comparison is made with a thin outside CT dated 08/02/2016. FINDINGS: The aorta is normal in course and caliber. The visible lung bases are clear. The heart size is normal without pericardial effusion. The liver appears normal without focal lesion on this noncontrast exam. The gallbladder is normal without evidence of wall thickening, pericholecystic fluid, or gallstones. The intrahepatic and extrahepatic bile ducts are nondilated. The spleen appears homogeneous in attenuation without focal lesion. The pancreas and adrenal glands are normal. There is a duplicated right renal collecting system. A right nephroureteral stent extends from the ureteropelvic junction of the lower pole moiety and terminates in the urinary bladder. There is severe right hydronephrosis involving the lower pole moiety with a 7 mm calculus in the inferior pole (series 5, image 105). Contrast material is seen within the right and left renal collecting system and portions of the left ureter, likely related to recent prior ureteroscopy and cystogram. There is contrast extravasation at the ureteropelvic junction of the right lower pole moiety extending into the right perirenal space and anterior pararenal space adjacent to the second portion of the duodenum consistent with perforation. Gas locules are seen in the right lower pole renal collecting system which are likely postprocedural. The upper pole moiety of the duplicated right kidney demonstrates mild caliectasis. There is a duplicated left renal collecting system without hydronephrosis. The proximal left ureters are patent. The distal left ureter is not well-opacified. No renal mass is identified. No bladder calculus is identified. No filling defect is seen within the opacified portion of the bladder. The uterus is normal. No free fluid is seen within the pelvis. There is no pelvic lymphadenopathy. The distal esophagus and stomach appear normal. The small bowel and large bowel are normal in caliber without evidence of wall thickening or obstruction. The appendix appears normal without appendicolith or surrounding inflammatory changes. There is no abdominal lymphadenopathy. Bone windows demonstrate no suspicious lytic or blastic lesions. The visible osseous structures are intact. Procedure Note Mauro Shelley MD - 11/04/2017 EXAMINATION: Computed tomography (CT) of the abdomen and pelvis withoutintravenous contrast HISTORY: History of kidney stones, concern for right ureteral injury afterureteroscopy TECHNIQUE: CT abdomen and pelvis was performed without intravenouscontrast in the supine position. Additional prone images were obtainedthrough the kidneys. COMPARISON: Comparison is made with a thin outside CT dated 08/02/2016. FINDINGS: The aorta is normal in course and caliber. The visible lung bases are clear. The heart size is normal withoutpericardial effusion. The liver appears normal without focal lesion on this noncontrast exam.The gallbladder is normal without evidence of wall thickening,pericholecystic fluid, or gallstones. The intrahepatic and extrahepaticbile ducts are nondilated. The spleen appears homogeneous in attenuation without focal lesion. The pancreas and adrenalglands are normal. There is a duplicated right renal collecting system. A rightnephroureteral stent extends from the ureteropelvic junction of the lowerpole moiety and terminates in the urinary bladder. There is severe righthydronephrosis involving the lower pole moiety with a 7 mm calculus in the inferior pole (series 5, image 105). Contrastmaterial is seen within the right and left renal collecting system andportions of the left ureter, likely related to recent prior ureteroscopyand cystogram. There is contrast extravasation at the ureteropelvic junction of the right lower pole moietyextending into the right perirenal space and anterior pararenal spaceadjacent to the second portion of the duodenum consistent withperforation. Gas locules are seen in the right lower pole renal collecting system which are likely postprocedural. Theupper pole moiety of the duplicated right kidney demonstrates mildcaliectasis. There is a duplicated left renal collecting system without hydronephrosis.The proximal left ureters are patent. The distal left ureter is notwell-opacified. No renal mass is identified. No bladder calculus isidentified. No filling defect is seen within the opacified portion of the bladder. The uterus is normal. No free fluid is seen within the pelvis. There is nopelvic lymphadenopathy. The distal esophagus and stomach appear normal. The small bowel and largebowel are normal in caliber without evidence of wall thickening orobstruction. The appendix appears normal without appendicolith orsurrounding inflammatory changes. There is no abdominal lymphadenopathy. Bone windows demonstrate no suspicious lytic or blastic lesions. Thevisible osseous structures are intact. IMPRESSION IMPRESSION: 1. Duplicated right renal collecting system with perforation of the rightureteropelvic junction of the right lower pole moiety. 2. Interval placement of a right nephroureteral stent extending from theureteropelvic junction of the lower pole moiety to the urinary bladder. 3. Severe right lower pole hydronephrosis with 7 mm calculus in theinferior pole of the right kidney. Mild right upper pole caliectasis. Preliminary results were discussed with Iza Priest SANITATION TRUCK DRIVER by Dr. Palmer 09/28/2016 at 3:23 PM. Dictated by Giacomo Leija MD (associate professor of radiology). I, Dr. MAURO SHELLEY M.D. have personally reviewed and interpreted thisexamination/study. This report was electronically signed by MAURO SHELLEY M.D. on09/29/2016 2:06 PM . Monse Campos MD CT ORDERABLE S * LAB HISTORICAL RESULTS-ONBASE (09/17/2016) 09/17/2016 Historical Provider LAB - CHEMISTRY O RDERABLES Performing Organization Address City/State/[facility] Co de Phone Number [address] * URINALYSIS AUTO - POINT OF CARE (AMB) STL (04/15/2016 9:57 AM CDT) Clarity UA POCT clear Color UA POCT yellow Leukocyte UA 1+ Negative Nitrite UA POCT negative Negative Urobilinogen UA 0.2 0.1 - 1.0 Protein UA POCT 1+ Negative pH UA 5.0 5.0 - 8.0 pH units Blood UA 50+ Negative Specific [place] UA POCT 1.005 1.002 - 1.030 Ketone UA 1+ Negative Bilirubin UA POCT negative Negative Glucose UA negative Negative Expiration Date [id number] Lot # [id number] QC Verified Yes Yes URINE / Unknown 04/15/2016 9 :57 AM CDT Leonel Oliver DO LAB - POINT OF CARE ORDERABLES Care Teams Bar Back Relationship Specialty Start Date End Date Leonel Oliver, PCP - General Internal Medicine 04/15/16
--- OUTSIDE RECORDS SUMMARY | 2024-09-11 10:38 | XMS_ITS | Clinical Summary ---
Author Organization [facility] [employer] Address [address] [place] [address] Care Team Providers Care Consulting Solution Director Name Role Phone Leonel Oliver DO Primary Care Provider [phone] Source Comments [facility] [employer],non-owned Affiliates and Associated Physician Practices is amultiple site organization consisting of ambulatory clinics and hospital sitesin [place], [place] and [place]. This disclosure is being madepursuant to the Care Everywhere program and may not contain all information available regarding this patient. Last updated 18.[facility] [employer] Allergies No known active allergies Medications * Be aware that medications may not be up to date on this document. Always verify current medications with the patient. Medication Sig Dispensed Refills Start Date End Date Status drospirenone-ethinyl estradiol (VIBHA 28) 3-0.03 MG tablet Take 1 Tab by mouth once daily Active fluticasone propionate (FLONASE) 50 MCG/ACT nasal sprayIndications:Nasa l Signs and Symptoms [place] 2 Sprays into each nostril once daily Reasons: Signs and Symptoms of Nose Diseases 1 Bottle 09/21/2016 Active Active Problems No known active problems Social [...] Comments Blood Pressure 121/78 10/12/2017 9:53 AM PURIFICATION DIRECTOR Pulse 102 10/12/2017 9:53 AM PURIFICATION DIRECTOR Temperature 37.1 ??C (98.7 ??F) 09/16/2017 9:41 AM CS T Respiratory Rate 16 02/02/2017 12:26 PM CDT Oxygen Saturation 95% 10/12/2017 9:53 AM PURIFICATION DIRECTOR Inhaled Oxygen Concentration - - Weight 108.9 kg (240 lb) 10/12/2017 9:53 AM PURIFICATION DIRECTOR Height 160 cm (5' 3 ) 10/12/2017 9:53 AM PURIFICATION DIRECTOR Body Mass Index 42.51 10/12/2017 9:53 AM PURIFICATION DIRECTOR Plan of Treatment Health Maintenance Due Date Last Done Comments PAP SMEAR 1990 HIV SCREENING 2005 HEPATITIS C SCREENING 09/21/2008 DTAP/TDAP/TD VACCINES (1 - Tdap) 2009 HEPATITIS B VACCINE (1 of 3 - 19+ 3-dose series) 2009 COVID-19 VACCINE (1 - 2023-2 5 season) 2024 INFLUENZA VACCINE (#1) 2024 DEPRESSION SCREENING 08/08/2024 ZOSTER VACCINE (1 of 2) 2040 HIB VACCINE Aged Out No longer eligi ble based on patient's age to complete this topic HPV VACCINE Aged Out No longer eligi ble based on patient's age to complete this topic MENINGOCOCCAL (Group B) VACCINE Aged Out No longer eligible based on patient's age to complete this topic MENINGOCOCCAL VACCINE Aged Out No slick monique eligible based on patient's age to complete this topic PNEUMOCOCCAL VACCINE Aged Out No long er eligible based on patient's age to complete this topic Care Teams Consulting Solution Director Relationship Specialty Start Date End Date Leonel Oliver DO PCP - General Internal Medicine 04/15/16
--- OUTSIDE RECORDS SUMMARY | 2024-09-11 10:38 | XMS_ITS | Clinical Summary ---
Author Organization [facility] Address [address] [place] [address]. [place] [address] [place] [address] Care Team Providers Care Marble Mechanic Helper Name Role Phone Vanna BESS MD, Cirilo Wilkes Primary Care Provider Allergies No known active allergies Medications Drospirenone-Eth inyl Estradiol (RUBINA) 3-0.02 MG Tab Active lorazepam 0.5 MG tablet Take 1 tablet (0.5 mg total) by mouth every 8 (eight) hours as needed for Anxiety. 6 tablet 07/25/2018 Active Family History Medical History Relation Comments None Father None Mother Relation Status Comments Father Alive Mother Alive Social History Tobacco Use Types Packs/Day Years Used Date Smoking Tobacco: Every Day Cigarettes Smokeless Tobacco: Never Alcohol Use Standard Drinks/Week Comments No 0 (1 standard drink = 0.6 oz pur e alcohol) Comments No Sex and Gender Information Value Date Recorded Sex Assigned at Not on file Legal Sex Female 9:41 AM CDT Gender Identity Not on file Sexual Orientation Not on file Last Filed Vital Signs Vital Sign Reading Time Taken Comments Blood Pressure 117/66 03/05/2021 3:45 PM CDT Pulse 82 03/05/2021 3:45 PM CDT Temperature 36.8 ??C (98.3 ??F) 03/05/2021 11:27 AM C DT Respiratory Rate 18 03/05/2021 3:45 PM CDT Oxygen Saturation 98% 03/05/2021 3:45 PM CDT Inhaled Oxygen Concentration - - Weight 107 kg (235 lb 14.3 oz) 03/05/2021 11:27 AM CDT Height 160 cm (5' 3 ) 03/05/2021 11:27 AM CDT Body Mass Index 41.79 03/05/2021 11:27 AM CDT Plan of Treatment Health Maintenance Due Date Last Done Comments Cervical Cancer Screening Pa p Smear (Age 30 to 64) Every 3 Years 1990 Annual Physical 1993 Pneumococcal Vaccine: Pediatrics (0 to 5 Years) and At-Risk Patients (6 to 64 Years) (1 of 2 - PCV) 1996 Hepatitis C 2008 DTaP, Tdap and Td Vaccines ( 1 - Tdap) 2009 09/04/1991, 1990 Hepatitis B Vaccines (1 of 3 - 19+ 3-dose series) 2009 Cervical Cancer Screening Pa p with HPV Testing (Age 30 to 64) Every 5 Years 2020 Cervical Cancer Screening wi th HPV 2020 COVID-19 Vaccine ( - 2023-2 5 season) 2024 Influenza Adult (#1) 2024 HPV Vaccines Aged Out No longer eligi ble based on patient's age to complete this topic Meningococcal B Vaccine Aged Out No l onger eligible based on patient's age to complete this topic Meningococcal Vaccine Aged Out No slick monique eligible based on patient's age to complete this topic RSV Immunizations Under 20 Months Aged Out No longer eligible b ased on patient's age to complete this topic Insurance [facility] Care Teams Marble Mechanic Helper Relationship Specialty Start Date End Date Cirilo Prabhakar II, MD PCP - General FAMILY PRACTICE 11/30/17
--- OUTSIDE RECORDS SUMMARY | 2024-09-11 10:38 | XMS_ITS | Referral Summary ---
Author Organization [facility] Address [address] [facility] [place] [address] Care Team Providers Care Contracting Specialist Name Role Phone Leonel Oliver DO Primary Care Provider [phone] Source Comments [facility],non-owned Affiliates and Associated Physician Practices is amultiple site organization consisting of ambulatory clinics and hospital sitesin [place], [place], [place] and [place]. This disclosure is being madepursuant to the Care Everywhere program and may not contain all information available regarding this patient. Last updated 18.[facility] Allergies No known active allergies Medications * Be aware that medications may not be up to date on this document. Alwaysverify current medications with the patient. Medication Sig Dispensed Refills Start Date End Date Status drospirenone-ethinyl estradiol (VIBHA 28) 3-0.03 MG tablet Take 1 Tab by mouth once daily Active fluticasone propionate (FLONASE) 50 MCG/ACT nasal sprayIndications:Nasa l Signs and Symptoms [place] 2 Sprays into each nostril once daily [...] Comments Blood Pressure 121/78 10/12/2017 9:53 AM PRIVACY SPECIALIST Pulse 102 10/12/2017 9:53 AM PRIVACY SPECIALIST Temperature 37.1 ??C (98.7 ??F) 09/16/2017 9:41 AM CS T Respiratory Rate 16 02/02/2017 12:26 PM CDT Oxygen Saturation 95% 10/12/2017 9:53 AM PRIVACY SPECIALIST Inhaled Oxygen Concentration - - Weight 108.9 kg (240 lb) 10/12/2017 9:53 AM PRIVACY SPECIALIST Height 160 cm (5' 3 ) 10/12/2017 9:53 AM PRIVACY SPECIALIST Body Mass Index 42.51 10/12/2017 9:53 AM PRIVACY SPECIALIST Plan of Treatment Not on file Care Teams Contracting Specialist Relationship Specialty Start Date End Date Leonel Oliver DO PCP - General Internal Medicine 04/15/16
--- OUTSIDE RECORDS SUMMARY | 2024-09-11 10:38 | XMS_ITS | Clinical Summary ---
Author Organization [facility] Address [address] [place] [address] Phone Care Team Providers Care Urgent Care Technician Name Role Phone Unavailable Primary Care Provider Unavailabl e Social History Tobacco Use Types Packs/Day Years Used Date Smoking Tobacco: Never Assessed Comments Unknown Sex and Gender Information Value Date Recorded Sex Assigned at Not on file Legal Sex Female 12:23 PM CDT Gender Identity Not on file Sexual Orientation Not on file Plan of Treatment Health Maintenance Due Date Last Done Comments DTAP/TDAP/TD VACCINES (1 - Tdap) 2009 HEPATITIS B VACCINES (1 of 3 - 19+ 3-dose series) 2009 CERVICAL CANCER SCREENING 2020 INFLUENZA VACCINE (#1) 2024 HPV VACCINES Aged Out No longer eligi ble based on patient's age to complete this topic
--- OUTSIDE RECORDS SUMMARY | 2024-09-11 10:38 | XMS_ITS | Continuity of Care Document ---
Author Organization [facility] Address [address] [place] [address] [address] [place] [address] Phone Care Team Providers Care Load Blocker Name Role Phone Sarah Mauro Unavailable Unavailable Advance Directives Directive Yes / No Effective Date File Name No Information Encounters Encounter Description Practice Location Reason(s) For Visit Diagnoses Date Provider Providers Copied on Encounter [facility], [address] [place] [address] [address], [place], [place], [id number], [place] tel:[phone] SEC [facility] No Information 0 [phone] Zunilda Smith. [address] [facility] , [address], [place], [address], [place]. tel:[phone] Referring Provider: José Miguel Wills, [address] [facility] [facility] [address], [place], [address]. tel:[phone] Family History Family Member Type Diagnosis Age At Onset No Information Payers Payer name Insurance type Covered alliance party ID Authoriza tion(s) Medicaid [facility] [id number] Social History Type Description Quantity Date Captured [...]
[2024-09-11 12:26] LABS: Add Urine Microscopic? YES; Appearance Urine Turbid (Clear); Bacteria Urine Rare /hpf; Basophils Absolute Auto 0.1 K/mm3 (0.0-0.1); Basophils Percent Auto 0.7 % (0.2-1.2); Bilirubin Urine Negative (Negative); Blood Urine 3+ (Negative); Color Urine Dark Yellow (Yellow); Eosinophils Absolute Auto 0.2 K/mm3 (0-0.3); Glucose Urine UA Negative (Negative); Hematocrit 45.8 % (37.0-47.0); Hemoglobin 14.9 g/dL (12.0-15.0); Immature Granulocyte Absolute 0.03 K/mm3 (0.00-0.031); Immature Granulocyte Percent A 0.3 % (0-0.5); Ketones Urine 1+ mg/dL (Negative); Leukocyte Esterase Ur Trace LEU/UL (Negative); Lymphocytes Absolute Auto 2.99 K/mm3 (0.9-3.2); Lymphocytes Percent Auto 33.1 % (18.3-44.2); Mean Corpuscular HGB Conc 32.5 g/dl (32-36); Mean Corpuscular Hemoglobin 30.3 pg (26-34); Mean Corpuscular Volume 93.3 fl (80-100); Monocytes Absolute Auto 0.5 K/mm3 (0.1-0.6); Monocytes Percent Auto 5.2 % (2.6-8.5); Neutrophils Absolute Auto 5.3 K/mm3 (1.3-6.7); Neutrophils Percent Auto 58.7 % (45.5-73.1); Nitrate Urine Negative (Negative); Platelet Count Result 353 k/mm3 (150-375); Protein Urine Trace mg/dL (Negative); Red Blood Count 4.91 M/mm3 (4.2-5.4); Red Cell Distribution Width 13.1 % (11.5-14.5); Specific Grav Ur 1.029 (1.001-1.035); Squamous Epithelial Cell Urine Few /hpf (Few); WBC Urine 0-5 /hpf (0-3); pH Urine 5.5 (5.0-9.0)
[2024-09-11 16:07] LABS: Alanine Aminotransferase 10 U/L (6-35); Albumin Level 4.2 g/dL (3.5-5.1); Alkaline Phosphatase 67 U/L (38-126); Anion Gap 13 mmol/L (4-12); Aspartate Amino Transferase 21 U/L (14-36); Bilirubin,Total 0.5 mg/dL (0.2-1.3); Blood Urea Nitrogen 8 mg/dL (7-17); Calcium 9.4 mg/dL (8.4-10.2); Carbon Dioxide 22 mmol/L (22-30); Chloride 104 mmol/L (98-107); Cholesterol 150 mg/dL (0-200); Estimated Glomerular Filt Rate 47; Glucose 86 mg/dL (65-110); HDL Direct 49 mg/dL; Potassium 4.6 mmol/L (3.4-5.0); Sodium 139 mmol/L (137-145); Triglycerides 60 mg/dL (<150)
[2024-09-11 16:17] LABS: LDL Cholesterol Direct 78 mg/dL
== END 2024-09-11 10:11 | disposition home or self-care (01) ==
LOC: ANHGOSHLAB 10:12
PROVIDERS: PCP Nurse Practitioner; Visit Provider Nurse Practitioner
DX: N30.01 Acute cystitis with hematuria (principal); Z13.220 Encounter for screening for lipoid disorders; Z13.29 Encounter for screening for other suspected endocrine disorder
CPT/HCPCS: 36415; 80053; 80061; 81001; 85025

== ENCOUNTER 2024-09-28 10:31 | Emergency (ER) | payer BC, SELFPAY ==
[2024-09-28 10:46] VITALS: BP 107/84; PULSE 102; RESP 16; TEMP 36.4; O2SAT 95
--- NOTE | 2024-09-28 10:51 | ED_ITS ---
HPI - General Adult General Chief complaint: Upper Respiratory Infection Stated complaint: Upper Respiratory Symptoms Source: patient Mode of arrival: ambulatory Limitations: no limitations History of Present Illness HPI narrative: Patient presents for evaluation of sick symptoms for last 36 hrs. Symptoms include hot flashes, generalized body aches, sinus congestion, nasal drainage, sore throat, cough and SOB. She denies nausea, vomiting or diarrhea. She has been around several individuals who have had the flu recently. She smokes 1 ppd. Related Data Home Medications ?Medication ?Instructions ?Recorded ?Confirmed ?Last Taken ?Type dextroamphetamine-amphetamine 10 10 mg PO BID 08/06/20 11/23/23 Unknown History mg tablet lamotrigine 200 mg tablet 200 mg PO BID 08/06/20 11/23/23 03/16/22 History dextroamphetamine-amphetamine ER 30 mg PO 11/23/23 11/23/23 Unknown History 30 mg 24hr capsule,extend release Allergies Allergy/AdvReac Type Severity Reaction Status Date / Time No Known Allergies Allergy Verified 09/28/24 10:42 Review of Systems Review of Systems: CONSTITUTIONAL: Reports hot flashes. Denies fever, chills, or sweats. EYES: Denies visual changes, redness, or discharge. ENT: Reports sinus congestion, nasal drainage, sore throat and ear pain CARDIOVASCULAR: Denies chest pain, palpitations, or edema. RESPIRATORY: Reports cough and SOB GASTROINTESTINAL: Denies abdominal pain, nausea, vomiting, or diarrhea. GENITOURINARY: Denies dysuria or hematuria. SKIN: Denies rash or itching. MUSCULOSKELETAL: Reports generalized body aches NEUROLOGIC: Reports headache. Denies numbness, dizziness, or weakness. PSYCHIATRIC: Denies anxiety or depression. [facility] Past Medical History Medical History Headache GERD (gastroesophageal reflux disease) Regurgitation of food Epigastric pain Irritable bowel syndrome with diarrhea Nausea and vomiting Vomiting Encounter for IUD removal 05/06/10 Mirena removal 09/09/14 Paragard removal Encounter for IUD insertion 02/05/10 Mirena insertion 03/29/11 Paragard insertion Marijuana use Tobacco use Diarrhea ADHD (attention deficit hyperactivity disorder) Tachycardia Pyelonephritis Anxiety Depression Kidney stones Hx of migraines Surgical History Surgical History History of ureter stent History of right nephrectomy (~01/2017) Family History Family History Other Breast cancer maternal aunt Social History Social History Smoking packs per day: 1 Smoking cigarettes per day: 20.0 Years smoked: 2 Smoking pack-years: 2.00 Smoking status: Current every day smoker Tobacco type: cigarettes Alcohol intake: never Substance use: never Substance use type: does not use Living arrangements: with family Additional living arrangements comments: Occupation/Education: occupation 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 HEAD: Normocephalic, atraumatic. EYES: PERRLA and EOMI. ENT: Nares clear, no rhinorrhea or epistaxis. Mucous membranes moist. Oropharynx without tonsillar hypertrophy exudate or other lesions. Bilateral TMs pearly karimi nonbulging NECK: Supple. No adenopathy or masses. No carotid bruits or JVD CHEST: Clear to auscultation. No respiratory distress. No wheezes rales or rhonchi HEART: Regular rate and rhythm. No murmur heard. Normal peripheral pulses. ABDOMEN: Soft, nontender, nondistended, normal active bowel sounds. EXTREMITIES: Normal range of motion. No edema. SKIN: Warm, dry, no rash. NEURO: No focal deficits. Alert and oriented x3. PSYCH: Normal mood and affect. Course Course Emergency Course: This is a 34-year-old female who presented for evaluation of sick symptoms. COVID, flu, strep negative. Exam consistent with acute viral syndrome. Patient noted wheezing at home and has responded well to steroids in the past. Will dc with prednisone and albuterol. She has dextromethorphan at home. She should follow up with primary provider. Go to the ER for worsening symptoms. Pt in agreement with plan of care. Level of Care: Express Care Visit Vital Signs Vital signs: Vital Signs Temperature 36.4 C 09/28/24 10:46 Pulse Rate 102 H 09/28/24 10:46 Respiratory Rate 16 09/28/24 10:46 Blood Pressure 107/84 09/28/24 10:46 Pulse Oximetry 95 09/28/24 10:46 Temperature 36.4 C 09/28/24 10:46 Pulse Rate 102 H 09/28/24 10:46 Respiratory Rate 16 09/28/24 10:46 Blood Pressure 107/84 09/28/24 10:46 Pulse Oximetry 95 09/28/24 10:46 Medical Decision Making Vital Signs Vital Signs: Vital Signs Temperature 36.4 C 09/28/24 10:46 Pulse Rate 102 H 09/28/24 10:46 Respiratory Rate 16 09/28/24 10:46 Blood Pressure 107/84 09/28/24 10:46 Pulse Oximetry 95 09/28/24 10:46 Temperature 36.4 C 09/28/24 10:46 Pulse Rate 102 H 09/28/24 10:46 Respiratory Rate 16 09/28/24 10:46 Blood Pressure 107/84 09/28/24 10:46 Pulse Oximetry 95 09/28/24 10:46 Lab Data Labs: Lab Results 09/28/24 Range/Units 11:00 POC Influenza A Ag Negative (Negative) POC Influenza B Ag Negative (Negative) POC SARS CoV-2 Ag Negative (Negative) POC Grp A Strep Screen Negative (Negative) Discharge Plan Discharge Clinical Impression: Upper respiratory infection, viral Patient Disposition: Home, Self-Care Condition: Stable Instructions: Antibiotic Form, Upper Respiratory Infection (DC), Viral Syndrome (ED) Patient Language: Hungarian Prescriptions: New prednisone 20 mg tablet 40 mg PO DAILY Qty: 10 0RF albuterol sulfate [Ventolin HFA] 90 mcg/actuation HFA aerosol inhaler 2 puff inhalation QID PRN (Reason: shortness of breath or wheezing) Qty: 8.5 0RF No Action dextroamphetamine-amphetamine 30 mg capsule,extended release 24hr 30 mg PO lamotrigine 200 mg tablet 200 mg PO BID dextroamphetamine-amphetamine 10 mg tablet 10 mg PO BID norethindrone (contraceptive) 0.35 mg tablet 0.35 mg PO DAILY Qty: 84 3RF Follow-up/Referrals: Leonel Oliver DO [Primary Care Provider] - Time of Disposition: 11:09
[2024-09-28 11:01] LABS: EDCOVIDSCREEN Negative (Negative); EDINFLUASCREEN Negative (Negative); EDINFLUBSCREEN Negative (Negative); EDSTREPNEGPOS1 Negative (Negative)
== END 2024-09-28 11:11 | disposition home or self-care (01) ==
PROVIDERS: Emergency Provider Nurse Practitioner; PCP Internal Medicine
DX: J06.9 Acute upper respiratory infection, unspecified (principal); B97.89 Other viral agents as the cause of diseases classified elsewhere; F17.210 Nicotine dependence, cigarettes, uncomplicated; Z20.822 Contact with and (suspected) exposure to COVID-19
CPT/HCPCS: 87081; 87426; 87804; 87880; 99213; G0463

== ENCOUNTER 2024-10-01 15:12 | Outpatient (CLI) | payer BC, SELFPAY ==
--- NOTE | ~2024-10-01 | XR_ITS ---
CHEST RADIOGRAPH, PA AND LATERAL CLINICAL HISTORY: SOB, cough, fever x 4 days, smoker . COMPARISON: 03/03/2021 TECHNIQUE: PA and lateral views of the chest. FINDINGS The cardiomediastinal silhouette is unremarkable. The lungs are clear. Visualized osseous structures and soft tissues are unremarkable. IMPRESSION: No focal infiltrate or effusion. Reviewed, dictated and finalized at location A. TRICAL AUTOMATION ENGINEER
== END 2024-10-01 15:13 | disposition home or self-care (01) ==
LOC: GOSHIMG 15:12
PROVIDERS: PCP Nurse Practitioner; Visit Provider Nurse Practitioner
DX: R06.02 Shortness of breath (principal); R50.9 Fever, unspecified; F17.200 Nicotine dependence, unspecified, uncomplicated
CPT/HCPCS: 71046

== ENCOUNTER 2024-12-12 14:00 | Outpatient (CLI) | payer BC, SELFPAY ==
--- OUTSIDE RECORDS SUMMARY | 2024-12-12 14:10 | XMS_ITS | Continuity of Care Document ---
Author Organization [facility] Address [address] [place] [address] [address] [place] [address] Phone Care Team Providers Care Industrial Designer Name Role Phone Sarah Mauro Unavailable Unavailable Advance Directives Directive Yes / No Effective Date File Name No Information Encounters Encounter Description Practice Location Reason(s) For Visit Diagnoses Date Provider Providers Copied on Encounter [facility], [id number] [place] [address] [address], [place], [place], [id number], [place] tel:[phone] SEC [facility] No Information 0 9-200 6 Zunilda Smith. [address] [facility] , [address], [place], [address], [place]. tel:[phone] Referring Provider: José Miguel Wills, [address] [facility] [address], [place], [address]. tel:[phone] Family History Family Member Type Diagnosis Age At Onset No Information Payers Payer name Insurance type Covered green party ID Authoriza tion(s) Medicaid [facility] [id number] Social History Type Description Quantity Date Captured [...]
--- OUTSIDE RECORDS SUMMARY | 2024-12-12 14:10 | XMS_ITS | Clinical Summary ---
Author Organization [facility] Address [facility] [place] [address] Care Team Providers Care White Spooler Name Role Phone Vanna BESS MD, Cirilo [...] 82 03/05/2021 3:45 PM CDT Temperature 36.8 C (98.3 F) 03/05/2021 11:27 AM CDT Respiratory Rate 18 03/05/2021 3:45 PM CDT [...] Every 3 Years 1990 Annual Physical 1993 Hepatitis C 2008 DTaP, Tdap and Td Vaccines ( 1 - Tdap) 2009 09/04/1991, 1990 Hepatitis B Vaccines (1 of 3 - 19+ 3-dose series) 2009 Pneumococcal Vaccine: Pediatrics (0 to 5 Years) and At-Risk Patients (6 to 49 Years) (1 of 2 - PCV) 2009 Cervical Cancer Screening Pa p with HPV Testing (Age 30 to 64) Every 5 Years 2020 Cervical Cancer Screening wi th HPV 2020 COVID-19 Vaccine ( - 2023-2 5 season) 2024 HPV Vaccines Aged Out No longer [...] patient's age to complete this topic Insurance [facility] Care Teams White Spooler Relationship Specialty Start Date End Date Cirilo Prabhakar II, MD PCP - General FAMILY PRACTICE 11/30/17
--- OUTSIDE RECORDS SUMMARY | 2024-12-12 14:10 | XMS_ITS | Clinical Summary ---
Author Organization [facility] Address [address] [place] [address] Phone Care Team Providers Care Coil Maker Name Role Phone Unavailable Primary Care Provider [...] of 3 - 19+ 3-dose series) 2009 HPV/Cotest (21-29) 2011 CERVICAL CANCER SCREENING 2020 HPV/Cotest (30-65) 2020 PAP SMEAR 2020 INFLUENZA VACCINE (#1) 2024 HPV VACCINES Aged Out No longer eligi ble based on patient's age to complete this topic
--- OUTSIDE RECORDS SUMMARY | 2024-12-12 14:10 | XMS_ITS | Clinical Summary ---
Author Organization [facility] Address [address] [facility] [place] [address] Care Team Providers Care Instrument Repairer Name Role Phone Leonel Oliver DO Primary Care Provider [phone] Source Comments [facility],non-owned Affiliates and Associated Physician Practices is amultiple site organization consisting of ambulatory clinics and hospital sitesin [place], [place], [place] and [place]. This disclosure is being madepursuant to the Care Everywhere program and may not contain all information available regarding this patient. Last updated 18.[facility] Allergies No known active allergies Medications * Be aware that medications may not be up to date on this document. Alwaysverify current medications with the patient. drospirenone-et hinyl estradiol (VIBHA 28) 3-0.03 MG tablet Take 1 Tab by mouth once daily Active fluticasone propionate (FLONASE) 50 MCG/ACT nasal sprayIndication s:Nasal Signs and Symptoms [place] 2 Sprays into each nostril once daily Reasons: Signs and Symptoms of Nose Diseases 1 Bottle 09/21/2016 Active Active Problems No known active problems Social History Tobacco Use Types Packs/Day Years Used Date Smoking Tobacco: Never Alcohol Use Standard Drinks/Week Comments Not Asked 0 (1 standard drink = 0.6 oz pur e alcohol) Comments Unknown Sex and Gender Information Value Date Recorded Sex Assigned at Not on file Legal Sex Female 5:44 AM MISSION COMMANDER Gender Identity Not on file Sexual Orientation Not on file Last Filed Vital Signs Vital Sign Reading Time Taken Comments Blood Pressure 121/78 10/12/2017 9:53 AM MISSION COMMANDER Pulse 102 10/12/2017 9:53 AM MISSION COMMANDER Temperature 37.1 C (98.7 F) 09/16/2017 9:41 AM MISSION COMMANDER Respiratory Rate 16 02/02/2017 12:26 PM CDT Oxygen Saturation 95% 10/12/2017 9:53 AM MISSION COMMANDER Inhaled Oxygen Concentration - - Weight 108.9 kg (240 lb) 10/12/2017 9:53 AM MISSION COMMANDER Height 160 cm (5' 3 ) 10/12/2017 9:53 AM MISSION COMMANDER Body Mass Index 42.51 10/12/2017 9:53 AM MISSION COMMANDER Plan of Treatment Health Maintenance Due Date Last Done Comments HIV SCREENING 2005 HEPATITIS C SCREENING 09/21/2008 DTAP/TDAP/TD VACCINES (1 - Tdap) 2009 HEPATITIS B VACCINE (1 of 3 - 19+ 3-dose series) 2009 COVID-19 VACCINE (1 - 2023-2 5 season) 2024 DEPRESSION SCREENING 08/08/2024 INFLUENZA VACCINE (Season Ended) 2025 ZOSTER VACCINE (1 of 2) 2040 HIB VACCINE Aged Out No longer eligi ble based on patient's age to complete this topic HPV VACCINE Aged Out No longer eligi ble based on patient's age to complete this topic MENINGOCOCCAL (Group B) VACC INE SHARED DECISION-MAKING Aged Out No longer eligibl e based on patient's age to complete this topic MENINGOCOCCAL GROUPS A/C/Y/W VACCINE Aged Out No longer eligible b ased on patient's age to complete this topic PNEUMOCOCCAL VACCINE Aged Out No long er eligible based on patient's age to complete this topic Insurance [facility] Care Teams Instrument Repairer Relationship Specialty Start Date End Date Leonel Oliver DO PCP - General Internal Medicine 04/15/16
== END 2024-12-12 14:01 | disposition home or self-care (01) ==
LOC: ANHCARD 14:01
PROVIDERS: PCP Nurse Practitioner; Visit Provider Nurse Practitioner
DX: R00.0 Tachycardia, unspecified (principal)
CPT/HCPCS: 93242

== ENCOUNTER 2025-06-07 09:43 | Outpatient (CLI) | payer BC, SELFPAY ==
--- OUTSIDE RECORDS SUMMARY | 2006-06-16 07:45 | XMS_ITS | Continuity of Care Document ---
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 [address] [facility] , [address], [place], [address], [place]. tel:[phone] Referring Provider: José Miguel Wills, [address] [place] [facility] [address], [place], [address]. tel:[phone] Family History Family Member Type Diagnosis Age At Onset No Information Payers Payer name Insurance type Covered democrat ID Authoriza tion(s) Medicaid [facility] [id number] Social History Type Description Quantity Date Captured Comments Sex Female Smoking Status No Information Chief Complaint And Reason For Visit No Information Reason For Referral Reason For Referral No Information History Of Present Illness Encounter Date Complaint History Of Prese nt Illness No Information Functional Status Date Functional Assessmen t No Information Instructions Date Instruction Additional Infor mation No Information Assessments Type Assessment Date No Information Patient Care Teams Name Effective Dates (start - stop) Status Members No Information
--- OUTSIDE RECORDS SUMMARY | 2025-06-07 10:13 | XMS_ITS | Clinical Summary ---
Author Organization [facility] Address [address] [place] [address] Phone Care Team Providers Care Hearing Aide Technician Name Role Phone Unavailable Primary Care [...] (1 of 3 - 19+ 3-dose series) 09/08 HPV/Cotest (21-29) 2011 HPV VACCINES (1 - 3-dose SCDM series) 2017 CERVICAL CANCER SCREENING 2020 HPV/Cotest (30-65) 2020 PAP SMEAR 2020 INFLUENZA VACCINE (#1) 2025
--- OUTSIDE RECORDS SUMMARY | 2025-06-07 10:13 | XMS_ITS | Clinical Summary ---
Author Organization [facility] Address [address] [place] [address] Care Team Providers Care Geodetic Engineer Name Role Phone Leonel Oliver DO Primary Care Provider [phone] Source Comments [facility],non-owned Affiliates and Associated Physician Practices is amultiple site organization consisting of ambulatory clinics and hospital sitesin [place], [place], [place] and [place]. This disclosure is being madepursuant to the Care Everywhere program and may not contain all information available regarding this patient. Last updated 18.[facility] Allergies No known active allergies Medications * Be aware that medications may not be up to date on this document. Alwaysverify current medications with the patient. drospirenone-et hinyl estradiol (VIBHA 28) 3-0.03 MG tablet Take 1 Tab by mouth once daily Active fluticasone propionate (FLONASE) 50 MCG/ACT nasal sprayIndication s:Nasal Signs and Symptoms [place] 2 Sprays into each nostril once daily [...] on file Legal Sex Female 5:44 AM PRODUCE CLERK Gender Identity Not on file Sexual Orientation Not on file Last Filed Vital Signs Vital Sign Reading Time Taken Comments Blood Pressure 121/78 10/12/2017 9:53 AM PRODUCE CLERK Pulse 102 10/12/2017 9:53 AM PRODUCE CLERK Temperature 37.1 C (98.7 F) 09/16/2017 9:41 AM PRODUCE CLERK Respiratory Rate 16 02/02/2017 12:26 PM CDT Oxygen Saturation 95% 10/12/2017 9:53 AM PRODUCE CLERK Inhaled Oxygen Concentration - - Weight 108.9 kg (240 lb) 10/12/2017 9:53 AM PRODUCE CLERK Height 160 cm (5' 3) 10/12/2017 9:53 AM PRODUCE CLERK Body Mass Index 42.51 10/12/2017 9:53 AM PRODUCE CLERK Plan of Treatment Health Maintenance Due Date Last Done Comments HIV SCREENING 2005 HEPATITIS C SCREENING 09/21/2008 DTAP/TDAP/TD VACCINES (1 - Tdap) 2009 HEPATITIS B VACCINE (1 of 3 - 19+ 3-dose series) 2009 HPV VACCINE (1 - 3-dose SCDM series) 2017 DEPRESSION SCREENING 08/08/2024 COVID-19 VACCINE (1 - 2023-2 5 season) 2025 INFLUENZA VACCINE (#1) 2025 ZOSTER VACCINE (1 of 2) 2040 [...] patient's age to complete this topic Insurance [facility] [employer] Care Teams Geodetic Engineer Relationship Specialty Start Date End Date Leonel Oliver DO PCP - General Internal Medicine 04/15/16
[2025-06-07 14:20] LABS: Hematocrit 44.9 % (37.0-47.0); Hemoglobin 14.4 g/dL (12.0-15.0); Immature Granulocyte Percent A 0.4 % (0-0.5); Lymphocytes Absolute Auto 3.02 K/mm3 (0.9-3.2); Mean Corpuscular HGB Conc 32.1 g/dl (32-36); Mean Corpuscular Hemoglobin 31.9 pg (26-34); Mean Corpuscular Volume 99.3 fl (80-100); Nucleated Red Blood Cells Absolute Auto 0.000 K/mm3 (0.0-0.012); Nucleated Red Blood Cells Perc 0.0 % (0.0-0.2); Platelet Count Result 345 k/mm3 (150-375); Red Blood Count 4.52 M/mm3 (4.2-5.4); White Blood Count 8.5 K/mm3 (4.5-10.0)
[2025-06-07 14:32] LABS: Alanine Aminotransferase 18 U/L (6-35); Albumin Level 4.3 g/dL (3.5-5.1); Alkaline Phosphatase 77 U/L (38-126); Anion Gap 7 mmol/L (4-12); Aspartate Amino Transferase 73 U/L (14-36); Bilirubin,Total 0.4 mg/dL (0.2-1.3); Blood Urea Nitrogen 8 mg/dL (7-17); Calcium 9.2 mg/dL (8.4-10.2); Carbon Dioxide 25 mmol/L (22-30); Chloride 104 mmol/L (98-107); Cholesterol 156 mg/dL (0-200); Estimated Glomerular Filt Rate 59; Glucose 65 mg/dL (65-110); HDL Direct 54 mg/dL; Potassium 4.5 mmol/L (3.4-5.0); Sodium 136 mmol/L (137-145); Total Protein 7.1 g/dL (6.3-8.2); Triglycerides 37 mg/dL (<150)
[2025-06-07 15:07] LABS: Thyroid Stimulating Hormone 0.804 uIU/mL (0.465-4.680)
== END 2025-06-07 09:44 | disposition home or self-care (01) ==
LOC: ANHGOSHLAB 09:43
PROVIDERS: PCP Nurse Practitioner; Visit Provider Clinical Nurse Specialist
DX: Q15.9 Congenital malformation of eye, unspecified (principal); R79.89 Other specified abnormal findings of blood chemistry
CPT/HCPCS: 36415; 80053; 80061; 84443; 85025

== ENCOUNTER 2025-06-13 09:59 | Outpatient (CLI) | payer BC, SELFPAY ==
--- NOTE | ~2025-06-13 | US_ITS ---
US right upper quadrant Indication: R74.01 - Elevation of levels of liver transaminase levels Comparison: None Technique: Emanuel-scale and color Doppler images were obtained. Findings: LIVER: Moderate increased echogenicity of the liver. The liver contours appear nodular . GALLBLADDER/BILIARY: Unremarkable.No cholelithiais, wall thickening or pericholecystic fluid. No biliary dilatation. CBD 4 mm. Oakley sign negative. PANCREAS: Pancreas limited by bowel gas. Right Kidney: The right kidney was not imaged. Impression: Cirrhotic disease of the liver suspected. Reviewed, dictated and finalized at location P. L COLLECTOR Impression: Cirrhotic disease of the liver suspected.
== END 2025-06-13 10:00 | disposition home or self-care (01) ==
LOC: GOSHIMG 09:59
PROVIDERS: PCP Nurse Practitioner; Visit Provider Clinical Nurse Specialist
DX: R74.01 Elevation of levels of liver transaminase levels (principal); K74.60 Unspecified cirrhosis of liver
CPT/HCPCS: 76705